=== PATIENT | male | born 1970 | race Hispanic/Latino ===

== ENCOUNTER → 2018-05-15 06:31 | Outpatient (CLI) | payer BC, SELFPAY ==
[2018-05-15 08:37] LABS: Absolute Lymphocyte Count 2.55 X10^3/ul (0.83-4.51); Absolute Neutrophil Count 3.2 X10^3/uL (2.0-7.7); Basophil# 0.02 X10^3/uL; Basophil% 0.3 % (0-1); Eosinophil# 0.24 X10^3/uL; Eosinophils% 3.6 % (0-5); Hematocrit 43.7 % (40-54); Hemoglobin 14.6 g/dl (13.0-16.5); Lymphocyte # 2.55 X10^3/ul (4.0); Lymphocyte % 38.8 % (19-41); Mean Corp Hgb Conc 33.4 g/gl (32-36); Mean Corpuscular Hgb 29.6 pg (27.0-32.0); Mean Corpuscular Volume 88.6 fL (80-94); Mean Platelet Vol. 9.5 fl (6.2-12.0); Monocyte# 0.61 X10^3/uL; Monocyte% 9.3 % (0-10); Neutrophil # 3.15 X10^3/uL (2.7-7.7); Neutrophil % 47.8 % (47-70); Platelet Count 340 K/mm3 (150-450); RBC Distribution Width CV 12.7 % (11.6-14.6); RBC Distribution Width SD 41.1 fl (35.1-43.9); Red Blood Count 4.93 M/mm3 (4.6-6.2); White Blood Count 6.6 K/mm3 (4.4-11.0)
[2018-05-15 08:38] LABS: POSITIVE COUNT NO; POSITIVE DIFFERENTIAL NO; POSITIVE MORPHOLOGY NO
[2018-05-15 08:59] LABS: Albumin, Serum 3.8 g/dL (3.2-5.0); BUN 13 mg/dL (7-18); BUN/Creat Ratio 13.7 RATIO (10-20); Creatinine, Serum 0.95 mg/dL (0.70-1.30); EST Glomerular Filtration Rate 91 mL/min (>60); Est Glom Filt Rate - Afr Amer 110 mL/min (>60); Globulin 4.3 g/dL (2.2-4.2); Glucose 93 mg/dL (74-106); Protein, Total 8.1 g/dL (6.4-8.2)
[2018-05-15 09:00] LABS: ALB/GLOB Ratio 0.9 RATIO (0.9-2.4); AST(SGOT) 19 U/L (15-37); Alanine Aminotransfer ALT/SGPT 31 U/L (16-61); Alkaline Phosphatase 78 U/L (45-117); Anion Gap 10 (5-15); Calcium,Total 8.8 mg/dL (8.5-10.1); Chloride 103 mmol/L (98-107); Cholesterol 175 mg/dL (200); High Density Lipoprotein 47 mg/dL; Potassium 3.6 mmol/L (3.5-5.1); Sodium Level 143 mmol/L (136-145); Triglycerides 124 mg/dL; Very Low Density Lipoprotein 25 mg/dL (5-40)
== END ==
PROVIDERS: Family Provider Internal Medicine; PCP Internal Medicine; Referring Provider Internal Medicine; Visit Provider Internal Medicine
DX: Z00.00 Encounter for general adult medical examination without abnormal findings (principal)
CPT/HCPCS: 36415; 80053; 80061; 85025

== ENCOUNTER → 2019-05-17 | Outpatient (CLI) | payer BC, SELFPAY ==
[2019-05-03 17:34] VITALS: BMI 25.6
[2019-05-17 06:40] LABS: Red Blood Cells-Urine 0 SEEN /hpf (0-5)
[2019-05-17 07:34] LABS: Color, Urine Yellow (Yellow); Glucose, Dipstick Normal (Normal); Ketone-Dipstick 15 mg/dl (Negative); Leukocyte Esterase-Dipstick 25 /ul (Negative); Nitrite-Dipstick Negative (Negative); Occult Blood-Urine Negative /ul (Negative); Protein-Dipstick 30 mg/dl (Negative); Urine Clarity Clear (Clear); Urine Urobilinogen 1 mg/dl (Normal)
[2019-05-17 07:36] LABS: Absolute Lymphocyte Count 2.07 X10^3/uL (0.83-4.51); Absolute Neutrophil Count 3.3 X10^3/uL (2.0-7.7); Basophil# 0.06 X10^3/uL; Eosinophil# 0.18 X10^3/uL; Eosinophils% 2.9 % (0-5); Hematocrit 44.3 % (40-54); Hemoglobin 14.9 g/dL (13.0-16.5); Lymphocyte # 2.07 X10^3/ul (4.0); Lymphocyte % 33.5 % (19-41); Mean Corp Hgb Conc 33.6 g/dL (32-36); Mean Corpuscular Hgb 29.8 pg (27.0-32.0); Mean Corpuscular Volume 88.6 fL (80-94); Mean Platelet Vol. 9.5 fl (6.2-12.0); Monocyte# 0.56 X10^3/uL; Monocyte% 9.1 % (0-10); NRBC Flagged by Analyzer 0 % (0-5); Neutrophil % 53.3 % (47-70); Platelet Count 352 K/mm3 (150-450); RBC Distribution Width CV 12.4 % (11.6-14.6); RBC Distribution Width SD 40.1 fl (35.1-43.9); White Blood Count 6.2 K/mm3 (4.4-11.0)
[2019-05-17 07:56] LABS: Urine Bilirubin Dipstick 1 mg/dL (Negative)
[2019-05-17 07:58] LABS: Bacteria 1+ /hpf (None Seen); Hyaline Cast 5-10 SEEN /lpf (0-5); Mucous, Urine 4+ /hpf (<or=2+); Squamous Epithelial Cells - UA 0-5 SEEN /hpf (0-5); White Blood Cells 0-5 SEEN /hpf (0-5)
[2019-05-17 08:02] LABS: ALB/GLOB Ratio 0.8 RATIO (0.9-2.4); AST(SGOT) 20 U/L (15-37); Alanine Aminotransfer ALT/SGPT 28 U/L (16-61); Alkaline Phosphatase 78 U/L (45-117); Anion Gap 8 (5-15); BUN 21 mg/dL (7-18); BUN/Creat Ratio 18.4 RATIO (10-20); Calcium,Total 9.2 mg/dL (8.5-10.1); Chloride 101 mmol/L (98-107); Cholesterol 183 mg/dL (200); Creatinine, Serum 1.14 mg/dL (0.70-1.30); EST Glomerular Filtration Rate 73 mL/min (>60); Est Glom Filt Rate - Afr Amer 89 mL/min (>60); Globulin 4.8 g/dL (2.2-4.2); Glucose 116 mg/dL (74-106); High Density Lipoprotein 53 mg/dL; Protein, Total 8.8 g/dL (6.4-8.2); Sodium Level 140 mmol/L (136-145); Triglycerides 84 mg/dL; Very Low Density Lipoprotein 17 mg/dL (5-40)
[2019-05-18 12:49] LABS: Hemoglobin A1c 5.1 % (4.2-6.3)
== END | disposition home or self-care (01) ==
PROVIDERS: Family Provider Internal Medicine; PCP Internal Medicine; Referring Provider Internal Medicine; Visit Provider Internal Medicine
DX: Z00.00 Encounter for general adult medical examination without abnormal findings (principal); I10 Essential (primary) hypertension; R73.9 Hyperglycemia, unspecified
CPT/HCPCS: 36415; 80053; 80061; 81001; 83036; 85025; 93005

== ENCOUNTER → 2019-08-08 06:36 | Outpatient (CLI) | payer BC, SELFPAY ==
[2019-05-25 08:08] VITALS: BMI 25.0
[2019-08-08 07:55] LABS: Anion Gap 3 (5-15); BUN 16 mg/dL (7-18); BUN/Creat Ratio 15.1 RATIO (10-20); Calcium,Total 9.9 mg/dL (8.5-10.1); Chloride 103 mmol/L (98-107); Creatinine, Serum 1.06 mg/dL (0.70-1.30); EST Glomerular Filtration Rate 80 mL/min (>60); Est Glom Filt Rate - Afr Amer 96 mL/min (>60); Glucose 104 mg/dL (74-106); Sodium Level 138 mmol/L (136-145)
== END ==
PROVIDERS: PCP Internal Medicine; Referring Provider Internal Medicine; Visit Provider Internal Medicine
DX: I10 Essential (primary) hypertension (principal)
CPT/HCPCS: 36415; 80048

== ENCOUNTER → 2019-10-02 | Outpatient (CLI) | payer BC, SELFPAY ==
[2019-10-02 16:09] VITALS: BMI 25.0
[2019-10-02 16:26] LABS: Bacteria 0 SEEN /hpf (None Seen); Mucous, Urine 0 SEEN /hpf (<or=2+)
[2019-10-02 17:09] LABS: Color, Urine Yellow (Yellow); Glucose, Dipstick Normal (Normal); Ketone-Dipstick Negative (Negative); Leukocyte Esterase-Dipstick Negative /ul (Negative); Nitrite-Dipstick Negative (Negative); Occult Blood-Urine Negative /ul (Negative); Protein-Dipstick Negative (Negative); Urine Bilirubin Dipstick Negative (Negative); Urine Clarity Clear (Clear); Urine Urobilinogen Normal (Normal)
[2019-10-02 17:33] LABS: Squamous Epithelial Cells - UA 0-5 SEEN /hpf (0-5)
[2019-10-02 17:35] LABS: Red Blood Cells-Urine 0-5 SEEN /hpf (0-5); White Blood Cells 0-5 SEEN /hpf (0-5)
[2019-10-02 17:39] LABS: Absolute Lymphocyte Count 1.68 X10^3/uL (0.83-4.51); Absolute Neutrophil Count 14.2 X10^3/uL (2.0-7.7); Basophil# 0.08 X10^3/uL; Basophil% 0.5 % (0-1); Eosinophil# 0.07 X10^3/uL; Eosinophils% 0.4 % (0-5); Hematocrit 41.7 % (40-54); Lymphocyte # 1.68 X10^3/ul (4.0); Lymphocyte % 9.8 % (19-41); Mean Corp Hgb Conc 33.6 g/dL (32-36); Mean Corpuscular Hgb 30.3 pg (27.0-32.0); Mean Corpuscular Volume 90.3 fL (80-94); Mean Platelet Vol. 9.2 fl (6.2-12.0); Monocyte# 1.02 X10^3/uL; NRBC Flagged by Analyzer 0 % (0-5); Neutrophil % 82.9 % (47-70); Platelet Count 364 K/mm3 (150-450); RBC Distribution Width CV 12.3 % (11.6-14.6); RBC Distribution Width SD 39.7 fl (35.1-43.9); Red Blood Count 4.62 M/mm3 (4.6-6.2); White Blood Count 17.1 K/mm3 (4.4-11.0)
[2019-10-02 17:47] LABS: ALB/GLOB Ratio 0.8 RATIO (0.9-2.4); AST(SGOT) 19 U/L (15-37); Alanine Aminotransfer ALT/SGPT 24 U/L (16-61); Albumin, Serum 4.1 g/dL (3.2-5.0); Alkaline Phosphatase 68 U/L (45-117); Anion Gap 6 (5-15); BUN 14 mg/dL (7-18); BUN/Creat Ratio 13.3 RATIO (10-20); Calcium,Total 9.5 mg/dL (8.5-10.1); Chloride 99 mmol/L (98-107); Creatinine, Serum 1.05 mg/dL (0.70-1.30); EST Glomerular Filtration Rate 80 mL/min (>60); Est Glom Filt Rate - Afr Amer 97 mL/min (>60); Globulin 4.9 g/dL (2.2-4.2); Glucose 101 mg/dL (74-106); Potassium 3.9 mmol/L (3.5-5.1); Sodium Level 136 mmol/L (136-145)
== END | disposition home or self-care (01) ==
PROVIDERS: PCP Internal Medicine; Visit Provider Nurse Practitioner Family
DX: R30.0 Dysuria (principal); R00.0 Tachycardia, unspecified
CPT/HCPCS: 36415; 80053; 81001; 84443; 85025; 87086

== ENCOUNTER → 2019-10-09 | Outpatient (CLI) | payer BC, SELFPAY ==
[2019-10-02 16:09] VITALS: BMI 25.0
[2019-10-09 17:00] LABS: Absolute Lymphocyte Count 1.63 X10^3/uL (0.83-4.51); Absolute Neutrophil Count 13.3 X10^3/uL (2.0-7.7); Basophil# 0.08 X10^3/uL; Basophil% 0.5 % (0-1); Eosinophil# 0.15 X10^3/uL; Eosinophils% 0.9 % (0-5); Hematocrit 40.1 % (40-54); Hemoglobin 13.3 g/dL (13.0-16.5); Lymphocyte # 1.63 X10^3/ul (4.0); Lymphocyte % 9.9 % (19-41); Mean Corp Hgb Conc 33.2 g/dL (32-36); Mean Corpuscular Hgb 29.4 pg (27.0-32.0); Mean Corpuscular Volume 88.7 fL (80-94); Mean Platelet Vol. 9.5 fl (6.2-12.0); Monocyte# 1.18 X10^3/uL; Monocyte% 7.2 % (0-10); NRBC Flagged by Analyzer 0 % (0-5); Neutrophil # 13.31 X10^3/uL (2.7-7.7); Neutrophil % 81.2 % (47-70); Platelet Count 405 K/mm3 (150-450); RBC Distribution Width CV 12.1 % (11.6-14.6); RBC Distribution Width SD 38.8 fl (35.1-43.9); Red Blood Count 4.52 M/mm3 (4.6-6.2); White Blood Count 16.4 K/mm3 (4.4-11.0)
== END | disposition home or self-care (01) ==
LOC: LABSPEC 16:44
PROVIDERS: PCP Internal Medicine; Referring Provider Nurse Practitioner Family; Visit Provider Nurse Practitioner Family
DX: D72.829 Elevated white blood cell count, unspecified (principal)
CPT/HCPCS: 85025

== ENCOUNTER → 2019-10-10 | Outpatient (CLI) | payer BC, SELFPAY ==
[2019-10-02 16:09] VITALS: BMI 25.0
--- NOTE | 2019-10-10 11:17 | RAD_ITS ---
STUDY: X-RAY CHEST REASON FOR EXAM: Male, 49 years old. cough TECHNIQUE: PA and lateral COMPARISON: None. FINDINGS: Mildly asymmetrically increased density in the right infrahilar region possibly representing subsegmental atelectasis or evolving infiltrate. This may represent chronic change although no prior study available for comparison at this time There is no demonstrated pleural abnormality. Normal size heart. Normal mediastinum and katie. Normal visualized pulmonary arteries. Normal visualized aortic arch and descending thoracic aorta. Dorsal spine demonstrates minor scoliosis and degenerative change. Normal visualized ribs, clavicles, and shoulders. There is no demonstrated abnormality of the visualized soft tissue structures of the upper abdomen. RAD/Chest PA and Lateral IMPRESSION: Asymmetrically increased density in the right infrahilar region possibly representing evolving atelectasis or infiltrate. Would recommend correlation with prior studies to assess for interval changes. CT would be useful for further evaluation if clinically warranted Electronically Signed: Jarod Andrews MD at 17:51 EDT , Service support ,
== END | disposition home or self-care (01) ==
PROVIDERS: PCP Internal Medicine; Referring Provider Internal Medicine; Visit Provider Internal Medicine
DX: R06.00 Dyspnea, unspecified (principal)
CPT/HCPCS: 71046

== ENCOUNTER → 2019-11-09 | Outpatient (CLI) | payer BC, SELFPAY ==
[2019-10-02 16:09] VITALS: BMI 25.0
[2019-11-09 16:33] LABS: Chlamydia Trachomatis by PCR Negative (Negative); Neisserai gonorrhoeae by PCR Negative (Negative); Probe Check PASS; Sample Adequacy Control PASS; Specimen Processing Control PASS
[2019-11-13 03:06] LABS: QNTFERON TB Mitogen Value > 10.00 IU/mL (.); QNTFERON TB Nil Value 0.02 IU/mL (.); QNTFERON TB1+ Ag Value 0.02 IU/mL (.); QNTFERON TB2+ Ag Value 0.02 IU/mL (.)
[2019-11-13 05:55] LABS: QNTIFERON TB Positive Criteria Negative (Negative)
[2019-11-15 02:32] LABS: Rapid Plasmin Reagin (RPR) NONREACTIVE (NONREACTIVE)
== END | disposition home or self-care (01) ==
PROVIDERS: PCP Internal Medicine
DX: Z11.3 Encounter for screening for infections with a predominantly sexual mode of transmission (principal)
CPT/HCPCS: 36415; 86480; 86592; 87491; 87591

== ENCOUNTER → 2019-11-12 | Outpatient (CLI) | payer BC, SELFPAY ==
[2019-10-02 16:09] VITALS: BMI 25.0
--- NOTE | 2019-11-12 15:51 | RAD_ITS ---
STUDY: X-RAY CHEST REASON FOR EXAM: Male, 49 years old. had some chest tightness and sob last month, follow up TECHNIQUE: PA and lateral views of the chest. COMPARISON: 10/10/2019 FINDINGS: The lungs are clear and expanded. There is no demonstrated pleural abnormality. Normal size heart. Normal mediastinum and katie. Normal visualized pulmonary arteries. Normal visualized aortic arch and descending thoracic aorta. Normal visualized thoracic spine. Normal visualized ribs, clavicles, and shoulders. There is no demonstrated abnormality of the visualized soft tissue structures of the upper abdomen. RAD/Chest PA and Lateral IMPRESSION: Normal x-ray examination of the chest. Electronically Signed: Sulema oNland MD at 0:55 EDT , Service support ,
[2019-11-12 17:32] LABS: Absolute Neutrophil Count 3.6 X10^3/uL (2.0-7.7); Basophil# 0.05 X10^3/uL; Basophil% 0.8 % (0-1); Eosinophil# 0.09 X10^3/uL; Eosinophils% 1.5 % (0-5); Hematocrit 42.2 % (40-54); Hemoglobin 14.2 g/dL (13.0-16.5); Lymphocyte % 30.7 % (19-41); Mean Corp Hgb Conc 33.6 g/dL (32-36); Mean Corpuscular Hgb 30.1 pg (27.0-32.0); Mean Corpuscular Volume 89.4 fL (80-94); Mean Platelet Vol. 9.6 fl (6.2-12.0); Monocyte# 0.58 X10^3/uL; Monocyte% 9.4 % (0-10); NRBC Flagged by Analyzer 0 % (0-5); Neutrophil # 3.55 X10^3/uL (2.7-7.7); Neutrophil % 57.4 % (47-70); Platelet Count 325 K/mm3 (150-450); RBC Distribution Width CV 12.6 % (11.6-14.6); RBC Distribution Width SD 41.1 fl (35.1-43.9); Red Blood Count 4.72 M/mm3 (4.6-6.2); White Blood Count 6.2 K/mm3 (4.4-11.0)
== END | disposition home or self-care (01) ==
PROVIDERS: PCP Internal Medicine; Referring Provider Nurse Practitioner Family; Visit Provider Nurse Practitioner Family
DX: J18.9 Pneumonia, unspecified organism (principal); D72.829 Elevated white blood cell count, unspecified
CPT/HCPCS: 36415; 71046; 85025

== ENCOUNTER 2019-11-15 12:47 | Emergency (ER) | payer BC, SELFPAY ==
[2019-11-15 12:48] VITALS: BP 158/110; PULSE 133; RESP 18; TEMP 37.1; O2SAT 100; BMI 23.8
--- NOTE | 2019-11-15 13:02 | EKG12_ITS ---
Test Reason : Blood Pressure : / mmHG Vent. Rate : 107 BPM Atrial Rate : 107 BPM P-R Int : 138 ms QRS Dur : 080 ms QT Int : 336 ms P-R-T Axes : 069 065 020 degrees QTc Int : 448 ms Sinus tachycardia Otherwise normal ECG Confirmed by JAKE ROQUE ([id number]), make up editor SILAS RAMOS ([id number]) on 11/19/2019 1:20:16 PM Referred By: KASHMIR Confirmed By:JAKE ROQUE
--- NOTE | 2019-11-15 13:03 | ED.VISSUMM ---
- ER Visit Summary Date of Service: 11/15/19 Chief Complaint: Shortness of breath History of Present Illness: The patient is a 49 M who complains of shortness of breath. He states it started yesterday. He gets short of breath with exertion and better with rest. He admits to a cough but is not continuous. He does have some chest pain but is not continuous. He has chills but no fevers. He states he has some backaches as well as a lack of appetite. No nausea or vomiting. He admits that he had pneumonia 1 month ago and had elevation of his white blood cell count. It was rechecked last Tuesday and his white blood cell count and chest x-ray were clear. He only has a history of hypertension. No known exposures to coronavirus Physical Examination: Vital signs reviewed. HEENT exam unremarkable. Heart is tachycardic and regular rhythm without murmurs. Lungs are clear to auscultation. Abdomen is soft and nontender. Extremities reveal no edema. Skin exam normal. Neurologic exam normal. Test Results: White blood cell count 23.3. Sodium 135, potassium 3.3, glucose 164. Troponin and d-dimer are normal. Chest x-ray normal Emergency Department Course and Treatment: The patient was given a liter of IV fluids. Upon reevaluation he states that he feels much better. His pain is now gone. I do not feel that this is cardiac. He showed me his labs from November 11. His white blood cell count was 6.7 at that time. He has no signs of pneumonia. He does not look septic or toxic. I am not quite sure what the white blood cell count could be from. It may be due to dehydration. At this point I do not feel he needs any antibiotics. He will increase his hydration at home. He will be discharged to follow-up with his primary care physician. I do not feel he requires coronavirus testing at this time. Treatment Plan: [] Disposition: Discharge Impression: Dyspnea, leukocytosis This note was generated with [employer] dictation software. It may contain incorrect words, spelling, and punctuation that were not noted in review of the chart prior to signing ED Disposition - Plan for ED Patient: Disposition: Home or Assisted Living Instructions: ED Dyspnea Referrals: Ye Kim MD [Primary Care Provider] -
[2019-11-15] MEDS: 0.9% Normal Saline 1,000 ML 999 ML IV (13:38)
[2019-11-15 13:43] VITALS: BP 137/91; PULSE 108; RESP 24; TEMP 36.7; O2SAT 100
--- NOTE | 2019-11-15 13:50 | RAD_ITS ---
STUDY: X-RAY CHEST REASON FOR EXAM: Male, 49 years old. SOB, COUGH TECHNIQUE: Single AP portable view of the chest. COMPARISON: None. FINDINGS: EKG electrodes are seen. The lungs are clear and expanded. Scattered calcified granulomas. There is no demonstrated pleural abnormality. Normal size heart. Normal mediastinum and katie. Normal visualized pulmonary arteries. Normal visualized aortic arch and descending thoracic aorta. There are degenerative changes of the visualized thoracic spine. Normal visualized ribs, clavicles, and shoulders. There is no demonstrated abnormality of the visualized soft tissue structures of the upper abdomen. RAD/Chest 1 View (Portable) IMPRESSION: Normal x-ray examination of the chest. Electronically Signed: Benny Mao, at 14:18 EDT , Service support ,
[2019-11-15 13:52] LABS: Absolute Lymphocyte Count 0.79 X10^3/uL (0.83-4.51); Absolute Neutrophil Count 21.2 X10^3/uL (2.0-7.7); Basophil# 0.08 X10^3/uL; Basophil% 0.3 % (0-1); Eosinophil# 0.02 X10^3/uL; Eosinophils% 0.1 % (0-5); Hematocrit 41.2 % (40-54); Hemoglobin 14.1 g/dL (13.0-16.5); Lymphocyte # 0.79 X10^3/ul (4.0); Lymphocyte % 3.4 % (19-41); Mean Corp Hgb Conc 34.2 g/dL (32-36); Mean Corpuscular Hgb 30.1 pg (27.0-32.0); Mean Platelet Vol. 9.3 fl (6.2-12.0); Monocyte# 1.01 X10^3/uL; Monocyte% 4.3 % (0-10); NRBC Flagged by Analyzer 0 % (0-5); Neutrophil # 21.24 X10^3/uL (2.7-7.7); Neutrophil % 91.4 % (47-70); POSITIVE DIFFERENTIAL YES; Platelet Count 308 K/mm3 (150-450); RBC Distribution Width CV 12.7 % (11.6-14.6); RBC Distribution Width SD 40.3 fl (35.1-43.9); Red Blood Count 4.68 M/mm3 (4.6-6.2); White Blood Count 23.3 K/mm3 (4.4-11.0)
[2019-11-15 13:53] LABS: Differential Indicated SCAN CRITERIA MET
[2019-11-15 14:06] LABS: D-Dimer Quantitative (DVT/PE) <= 0.27 FEU/ug/m (0.27-0.49)
[2019-11-15 14:10] LABS: Anion Gap 10 (5-15); BUN 13 mg/dL (7-18); BUN/Creat Ratio 10.1 RATIO (10-20); Calcium,Total 9.8 mg/dL (8.5-10.1); Chloride 96 mmol/L (98-107); Creatinine, Serum 1.29 mg/dL (0.70-1.30); EST Glomerular Filtration Rate 63 mL/min (>60); Est Glom Filt Rate - Afr Amer 77 mL/min (>60); Glucose 164 mg/dL (74-106); Potassium 3.3 mmol/L (3.5-5.1); Sodium Level 135 mmol/L (136-145)
[2019-11-15 14:16] VITALS: BP 139/87; PULSE 104; RESP 24; TEMP 36.9; O2SAT 99
[2019-11-15 15:09] VITALS: BP 134/84; PULSE 98; RESP 18; TEMP 36.9; O2SAT 99
[2019-11-16 12:02] VITALS: BMI 25.0
== END 2019-11-15 15:12 | disposition home or self-care (01) ==
PROVIDERS: Emergency Provider Emergency Medicine; PCP Internal Medicine
DX: R06.00 Dyspnea, unspecified (principal); D72.829 Elevated white blood cell count, unspecified; I10 Essential (primary) hypertension; Z79.899 Other long term (current) drug therapy
CPT/HCPCS: 71045; 80048; 84484; 85025; 85379; 93005; 96360; 99284

== ENCOUNTER → 2019-11-16 | Outpatient (CLI) | payer BC, SELFPAY ==
[2019-11-16 12:02] VITALS: BMI 25.0
[2019-11-16 13:10] LABS: Erythrocyte Sedimentation Rate 25 mm/hr (0-15)
[2019-11-19 13:08] LABS: ANTINUCLEAR ANTIBODIES DIRECT Negative (Negative)
== END | disposition home or self-care (01) ==
LOC: LAB 12:11
PROVIDERS: PCP Internal Medicine; Referring Provider Internal Medicine; Visit Provider Internal Medicine
DX: D72.829 Elevated white blood cell count, unspecified (principal); R07.9 Chest pain, unspecified
CPT/HCPCS: 36415; 85652; 86038; 86140; 86225; 86235; 87040

== ENCOUNTER → 2019-11-20 06:46 | Outpatient (CLI) | payer BC, SELFPAY ==
[2019-11-16 12:02] VITALS: BMI 25.0
--- NOTE | 2019-11-20 06:48 | CT_ITS ---
STUDY: CT CHEST WITH CONTRAST REASON FOR EXAM: Male, 49 years old. SOB AND CHEST PAIN TWO MONTHS AGO RADIATION DOSAGE (If Supplied By Facility): CTDIvol = ( 10.20 ) mGy, DLP = ( 256.82 ) mGycm TECHNIQUE: Transaxial imaging was performed following intravenous administration of IV 100mL [id number]-300. Individualized dose optimization techniques were used for this CT. COMPARISON: None. FINDINGS: The lungs are normal. There is no demonstrated pleural abnormality. Normal heart and pericardium. Normal mediastinum. Normal hilar regions. Normal enhanced pulmonary arteries. Normal aorta arch and descending thoracic aorta. Normal osseous structures. There is no demonstrated abnormality of the visualized upper abdomen. CT/Chest WITH Contrast IMPRESSION: Normal enhanced CT Chest examination. Electronically Signed: Abel Verma, at 14:13 EDT Tel , Service support ,
== END ==
PROVIDERS: PCP Internal Medicine; Referring Provider Internal Medicine; Visit Provider Internal Medicine
DX: R06.02 Shortness of breath (principal); D72.829 Elevated white blood cell count, unspecified
CPT/HCPCS: 71260; Q9967

== ENCOUNTER → 2019-11-27 06:31 | Outpatient (CLI) | payer BC, SELFPAY ==
[2019-11-27 07:02] LABS: Absolute Neutrophil Count 2.5 X10^3/uL (2.0-7.7); Basophil# 0.06 X10^3/uL; Basophil% 1.1 % (0-1); Eosinophil# 0.34 X10^3/uL; Hematocrit 40.6 % (40-54); Hemoglobin 13.6 g/dL (13.0-16.5); Lymphocyte % 40.8 % (19-41); Mean Corp Hgb Conc 33.5 g/dL (32-36); Mean Corpuscular Hgb 29.5 pg (27.0-32.0); Mean Corpuscular Volume 88.1 fL (80-94); Mean Platelet Vol. 8.8 fl (6.2-12.0); Monocyte# 0.48 X10^3/uL; Monocyte% 8.5 % (0-10); NRBC Flagged by Analyzer 0 % (0-5); Neutrophil # 2.46 X10^3/uL (2.7-7.7); Neutrophil % 43.6 % (47-70); Platelet Count 392 K/mm3 (150-450); RBC Distribution Width CV 11.9 % (11.6-14.6); RBC Distribution Width SD 38.1 fl (35.1-43.9); Red Blood Count 4.61 M/mm3 (4.6-6.2); White Blood Count 5.6 K/mm3 (4.4-11.0)
== END ==
PROVIDERS: PCP Internal Medicine; Referring Provider Internal Medicine; Visit Provider Internal Medicine
DX: D72.829 Elevated white blood cell count, unspecified (principal)
CPT/HCPCS: 36415; 85025

== ENCOUNTER → 2019-11-28 | Outpatient (CLI) | payer BC, SELFPAY ==
[2019-11-28 17:58] LABS: CRP < 2.90 mg/L (0.0-3.0)
== END | disposition home or self-care (01) ==
LOC: LABSPEC 17:11
PROVIDERS: Visit Provider Internal Medicine
DX: R79.82 Elevated C-reactive protein (CRP) (principal)
CPT/HCPCS: 86140

== ENCOUNTER → 2020-01-16 | Outpatient (CLI) | payer BC, SELFPAY ==
[2020-01-16 15:56] VITALS: BMI 25.0
[2020-01-16 17:03] LABS: CRP 5.57 mg/L (0.0-3.0)
[2020-01-17 07:15] LABS: SARS-COV-2 TOTAL ABS Nonreactive (Nonreactive)
== END | disposition home or self-care (01) ==
PROVIDERS: PCP Internal Medicine; Referring Provider Internal Medicine Cardiovascular Disease; Visit Provider Internal Medicine Cardiovascular Disease
DX: R79.82 Elevated C-reactive protein (CRP) (principal); Z11.59 Encounter for screening for other viral diseases
CPT/HCPCS: 36415; 86140; 86769; G2023

== ENCOUNTER → 2020-02-14 | Outpatient (CLI) | payer BC, SELFPAY ==
[2020-01-16 15:56] VITALS: BMI 25.0
--- NOTE | 2020-02-14 07:56 | ECHOD_ITS ---
Reason For Study: Hypertension Procedure This was a 2D Doppler, Color Flow transthoracic echocardiogram. Exam performed in department. Left Ventricle Normal LV size. Left ventricular systolic function is normal. The estimated ejection fraction is 60 %. Normal diastology for age. No regional wall motion abnormalities noted. Right Ventricle Normal RV size. Normal systolic function. Atria Normal left atrium. Normal right atrium. Mitral Valve Normal mitral valve. Tricuspid Valve Normal tricuspid valve. Aortic Valve Normal aortic valve. Trisinus/trileaflet aortic valve. Pulmonic Valve Normal pulmonic valve. Great Vessels Normal aortic root. The pulmonary artery is normal size. Normal inferior vena cava. Pericardium/Pleural No pericardial effusion. MMode/2D Measurements & Calculations LVIDd: 4.3 cm IVSd: 1.00 cm Ao root diam: 2.7 cm LVIDs: 2.7 cm LVPWd: 1.1 cm LA dimension: 3.3 cm RVDd: 3.1 cm FS: 36.0 % LAV(MOD-bp): 28.1 ml LVAd ap4: 25.1 cm2 SV(MOD-sp4): 36.8 ml LAV(MOD-bp) Indexed: 13.9 ml/m2 EDV(MOD-sp4): 66.7 ml LAV(MOD-sp2): 31.4 ml EDV(sp4-el): 69.9 ml LAV(MOD-sp4): 21.6 ml LVAs ap4: 15.5 cm2 ESV(MOD-sp4): 29.9 ml ESV(sp4-el): 30.8 ml EF(MOD-sp4): 55.2 % EF(sp4-el): 55.9 % SV(sp4-el): 39.1 ml LA A4 area: 11.5 cm2 RA A4 area: 12.7 cm2 Time Measurements MV dec time: 0.24 sec Doppler Measurements & Calculations MV E max lucho: 59.6 cm/sec Lat Peak E' Lucho: 15.1 cm/sec Med Peak E' Lucho: 9.1 cm/sec MV A max lucho: 41.9 cm/sec E/E' lat: 3.9 E/E' med: 6.5 MV E/A: 1.4 MV V2 max: 75.5 cm/sec MV P1/2t max lucho: 75.9 cm/sec Ao V2 max: 98.8 cm/sec MV max P.3 mmHg MV P1/2t: 69.2 msec Ao max P.9 mmHg MV V2 mean: 46.0 cm/sec MV mean P.95 mmHg MV dec slope: 321.3 cm/sec2 MV V2 VTI: 16.6 cm MVA(P1/2t): 3.2 cm2 LV V1 max: 85.6 cm/sec PA V2 max: 120.2 cm/sec LV V1 max P.9 mmHg Interpretation Summary Normal LV size. Left ventricular systolic function is normal. The estimated ejection fraction is 60 %. Structurally normal valves. Ordering Physician: Enrique Jolley Referring Physician: Ye Kim Performed By: Spring HUDSON RVT, Carrie and Student
== END | disposition home or self-care (01) ==
LOC: CVS 07:56
PROVIDERS: PCP Internal Medicine; Referring Provider Internal Medicine Cardiovascular Disease; Visit Provider Internal Medicine Cardiovascular Disease
DX: R06.00 Dyspnea, unspecified (principal); I10 Essential (primary) hypertension
CPT/HCPCS: 93225; 93226; 93306

== ENCOUNTER → 2020-09-26 11:47 | Outpatient (CLI) | payer BC, SELFPAY ==
[2020-09-26 11:18] VITALS: BMI 23.2
[2020-09-26 15:12] LABS: Erythrocyte Sedimentation Rate 3 mm/hr (0-20)
[2020-09-26 15:15] LABS: CRP 2.97 mg/L (0.0-3.0); Rheumatoid Factor < 10.0 IU/mL (<15)
[2020-09-30 08:52] LABS: CCP IgG Antibodies 4 units (0-19)
== END ==
PROVIDERS: PCP Internal Medicine; Referring Provider Internal Medicine; Visit Provider Internal Medicine
DX: M19.90 Unspecified osteoarthritis, unspecified site (principal)
CPT/HCPCS: 36415; 85652; 86140; 86200; 86431

== ENCOUNTER → 2020-10-02 16:59 | Outpatient (CLI) | payer BC, SELFPAY ==
[2020-09-26 11:18] VITALS: BMI 23.2
--- NOTE | 2020-10-02 17:10 | US_ITS ---
STUDY: SUPERFICIAL ULTRASOUND - SUBMANDIBULAR NECK. REASON FOR EXAM: Male, 50 years old. Submandibular swelling. Swelling of the right cheek/parotid area for 2 weeks and is beginning to decrease. TECHNIQUE: A superficial ultrasound was performed with real-time and static burns-scale imaging. COMPARISON: None. FINDINGS: Evaluation demonstrates normal right parotid gland. The overlying soft tissues and underlying musculature appear normal. Findings appear to layer to the comparable nonaffected left side. US/Head/Neck Soft Tissue IMPRESSION: No sonographic evidence of abnormality. Electronically Signed: Young Taylor DO at 20:42 EDT Tel [phone], Service support ,
--- NOTE | 2020-10-02 17:23 | RAD_ITS ---
STUDY: X-RAY - LEFT HAND REASON FOR EXAM: Left hand pain for about 2 months. TECHNIQUE: 3 view(s) of the hand. COMPARISON: None. FINDINGS: Normal radiocarpal articulation. Normal distal radioulnar joint. Normal visualized carpal bones. Normal carpal articulations Normal carpometacarpal articulation of the thumb. Normal second through fifth carpometacarpal joints. Normal metacarpi. Normal metacarpophalangeal joint of the thumb. Normal interphalangeal joint of the thumb. Normal proximal and distal phalanges of the thumb. Normal metacarpophalangeal joints of the second through fifth fingers. 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 Normal proximal and distal interphalangeal joints of the second through fourth fingers. Normal phalanges of the second through fifth fingers. The soft tissue structures are unremarkable. RAD/Hand Min 3 Views IMPRESSION: Boutonniere deformity of the fifth digit. Otherwise, unremarkable x-ray examination of the left hand. Electronically Signed: Karl Leroy MD at 10:33 EDT Tel , Service support ,
--- NOTE | 2020-10-02 17:24 | RAD_ITS ---
STUDY: X-RAY - RIGHT HAND REASON FOR EXAM: Right index finger pain for about 2 months. TECHNIQUE: 3 view(s) of the hand. COMPARISON: None. FINDINGS: Normal radiocarpal articulation. Normal distal radioulnar joint. Normal visualized carpal bones. Normal carpal articulations Normal carpometacarpal articulation of the thumb. Normal second through fifth carpometacarpal joints. Normal metacarpi. Normal metacarpophalangeal joint of the thumb. Normal interphalangeal joint of the thumb. Normal proximal and distal phalanges of the thumb. Normal metacarpophalangeal joints of the second through fifth fingers. There is flexion deformity at the proximal interphalangeal joint of the fifth digit. Otherwise, unremarkable proximal and distal interphalangeal joints of the second through fifth fingers. Normal phalanges of the second through fifth fingers. The soft tissue structures are unremarkable. RAD/Hand Min 3 Views IMPRESSION: Flexion deformity at the proximal interphalangeal joint of the fifth digit. Otherwise, unremarkable x-ray examination of the right hand. Electronically Signed: Karl Leroy MD at 10:29 EDT Tel , Service support ,
== END ==
PROVIDERS: PCP Internal Medicine; Referring Provider Internal Medicine; Visit Provider Internal Medicine
DX: M19.90 Unspecified osteoarthritis, unspecified site (principal); M79.641 Pain in right hand; R22.1 Localized swelling, mass and lump, neck
CPT/HCPCS: 73130; 76536

== ENCOUNTER → 2021-06-02 16:12 | Outpatient (CLI) | payer BC, SELFPAY ==
[2021-06-02 16:36] LABS: Absolute Lymphocyte Count 1.38 X10^3/uL (0.83-4.51); Absolute Neutrophil Count 5.6 X10^3/uL (2.0-7.7); Basophil# 0.03 X10^3/uL; Basophil% 0.4 % (0-1); Eosinophil# 0.01 X10^3/uL; Eosinophils% 0.1 % (0-5); Hematocrit 43.1 % (40-54); Hemoglobin 14.8 g/dL (13.0-16.5); Lymphocyte # 1.38 X10^3/ul (0.83-4.51); Lymphocyte % 18.5 % (19-41); Mean Corp Hgb Conc 34.3 g/dL (32-36); Mean Corpuscular Hgb 30.2 pg (27.0-32.0); Mean Platelet Vol. 8.6 fl (6.2-12.0); Monocyte# 0.45 X10^3/uL; NRBC Flagged by Analyzer 0 % (0-5); Neutrophil # 5.56 X10^3/uL (2.7-7.7); Neutrophil % 74.7 % (47-70); Platelet Count 396 K/mm3 (150-450); RBC Distribution Width CV 12.4 % (11.6-14.6); RBC Distribution Width SD 39.5 fl (35.1-43.9); White Blood Count 7.5 K/mm3 (4.4-11.0)
[2021-06-02 17:02] LABS: ALB/GLOB Ratio 0.8 RATIO (0.9-2.4); AST(SGOT) 21 U/L (15-37); Alanine Aminotransfer ALT/SGPT 28 U/L (16-61); Alkaline Phosphatase 72 U/L (45-117); Anion Gap 8 (5-15); BUN 13 mg/dL (7-18); BUN/Creat Ratio 12.1 RATIO (10-20); Calcium,Total 9.8 mg/dL (8.5-10.1); Chloride 97 mmol/L (98-107); Cholesterol 229 mg/dL (200); Creatinine, Serum 1.07 mg/dL (0.70-1.30); EST Glomerular Filtration Rate 78 mL/min (>60); Est Glom Filt Rate - Afr Amer 95 mL/min (>60); Globulin 5.2 g/dL (2.2-4.2); Glucose 111 mg/dL (74-106); High Density Lipoprotein 67 mg/dL; Potassium 3.6 mmol/L (3.5-5.1); Protein, Total 9.2 g/dL (6.4-8.2); Sodium Level 136 mmol/L (136-145); Thyroid Stim Hormone (TSH) 1.92 uIU/mL (0.358-3.74); Triglycerides 63 mg/dL; Very Low Density Lipoprotein 13 mg/dL (5-40)
== END ==
PROVIDERS: PCP Internal Medicine; Referring Provider Nurse Practitioner Family; Visit Provider Nurse Practitioner Family
DX: Z00.00 Encounter for general adult medical examination without abnormal findings (principal)
CPT/HCPCS: 36415; 80053; 80061; 84443; 85025

== ENCOUNTER 2021-08-28 07:15 | Day surgery (SDC) | payer BC, SELFPAY ==
[2021-08-28] VITALS (7 sets, daily range): BP systolic 76–133; BP diastolic 44–85; PULSE 70–87; RESP 14–16; TEMP 36.1–37.1; O2SAT 98–100; BMI 23.6
[2021-08-28] MEDS: Lactated Ringers 1,000 ML 15 ML IV (07:42)
--- NOTE | 2021-08-28 08:37 | HP.PCM_ITS ---
HPI - General HPI Narrative ELISEO PEACE JUNIOR, is a 51 M who presents for screening colonoscopy. The patient is never had a colonoscopy in the past. He reports no abdominal pain or blood in stool. He has no family history of colon cancer. [facility] Medical History (Updated 08/26/21 @ 10:24 by June Doe) Cardiology follow-up encounter Encounter for preventative adult health care examination Essential hypertension History of echocardiogram History of varicocele Hyperlipemia Non-smoker Wears glasses Home Medications hydrochlorothiazide 25 mg tablet 25 mg PO DAILY #90 tab 01/28/21 [Rx Last Taken Unknown] candesartan 32 mg tablet 32 mg PO DAILY #90 tab 04/27/21 [Rx Last Taken 08/28/21] magnesium 200 mg PO DAILY 08/26/21 [History Last Taken Unknown] omega 1-hbc-sll-fish oil [Fish Oil] 1 cap PO BID 08/26/21 [History Last Taken Unknown] Allergy/AdvReac Type Severity Reaction Status Date / Time No Known Allergies Allergy Verified 08/28/21 07:32 Family History Father Diabetes Mother Hypertension Hyperlipemia Surgical History History of right knee surgery Social History Smoking Status: Never smoker alcohol intake: never substance use type: does not use what type of physical activity do you participate in: bicycling and weight training frequency: 3-4 times per week Past Medical/Surgical History Planned Operation Planned Operative Procedure/s: COLONOSCOPY Previous Hospitalizations/Surgeries HX Hospitalizations: No Any Problems With Anesthesia: No You/Your Family Experience Fever (Hyperthermia) With Anes: No Cholinesterase deficiency: No Cardiovascular Hx Hypertension: Yes (CONTROLLED ON MED) Respiratory Hx Sleep Apnea: No Hx Respiratory Tract Infection/Cold (presently): No Do You Snore Loudly (louder than talking or can be heard): No Do You Often Feel Tired/ Fatigued/ Sleepy Dring Daytime?: No Has Anyone Observed You Stop Breathing During Sleep?: No Result (for STOP score): Negative Smoking Status: Never smoker Neurological Does patient have nerve stimulator: No Blood Disorder Hx High Cholesterol: Yes Miscellaneous Recent Exposure to Contagious Disease: No Allergies No Known Allergies Allergy (Verified 08/28/21 07:32) Discharge Is Pt Admitted From a Retirement, or a Half-Way: No After D/C, Where Do you Plan to Go: Return Home Vital Signs Vital Signs Vital Signs: 08/28/21 07:38 Temperature 98.7 F Temperature Source Temporal Pulse Rate 87 Respiratory Rate 16 Respiratory Pattern Normal Blood Pressure 133/85 H Blood Pressure Mean 101 Blood Pressure Source Monitor Blood Pressure Position Semi-Fowlers Blood Pressure Location Right Arm Pulse Ox 100 Oxygen Delivery Method Room Air Weight Weight: 174 lb 2.643 oz Body Mass Index (BMI) 23.6 Physical Exam Const alert and oriented x3 Resp normal respiratory effort and normal air movement Cardio regular rate and regular rhythm GI soft to palpation, non-tender and non-distended Assessment & Plan Assessment/Plan (1) Encounter for screening for malignant neoplasm of colon: PLAN: I explained endoscopy in detail to the patient. I explained the risks including but not limited to stroke or heart attack with anesthesia, perforation of the GI tract, bleeding, infection. I explained that any of these could necessitate further emergency surgery. The patient understands and all questions were answered sufficiently. The patient wishes to proceed with procedure. Bj Gibbons MD Pager: [facility] [address] [place] [address] [address] [place] [address] Office: Surgery Risks - Colonoscopy Risks Include but are not Limited To: Risks include but are not limited to: Bleeding, perforation requiring further surgery, inability to complete colonoscopy requiring barium enema.
--- NOTE | 2021-08-28 09:04 | OP.COLON_ITS ---
Patient Name: Trena Corley Junior Procedure Date: 08/28/2021 8:44 AM Date of : 1970 Age: 51 Procedure: Colonoscopy Indications: Screening for colorectal malignant neoplasm Providers: Bj Gibbons MD Referring MD: Ye Kim MD Medicines: Monitored Anesthesia Care Patient Profile: This is a 51 year old male. Refer to note in patient chart for documentation of history and physical. Last Colonoscopy: none. The patient's first colonoscopy is today. Complications: No immediate complications. Procedure: Pre-Anesthesia Assessment: - Prior to the procedure, a History and Physical was performed, and patient medications and allergies were reviewed. The patient's tolerance of previous anesthesia was also reviewed. The risks and benefits of the procedure and the sedation options and risks were discussed with the patient. All questions were answered, and informed consent was obtained. Prior Anticoagulants: The patient has taken no previous anticoagulant or antiplatelet agents. After reviewing the risks and benefits, the patient was deemed in satisfactory condition to undergo the procedure. After I obtained informed consent, the scope was passed under direct vision. Throughout the procedure, the patient's blood pressure, pulse, and oxygen saturations were monitored continuously. The colonoscope was introduced through the anus and advanced to the cecum, identified by appendiceal orifice and ileocecal valve. The colonoscopy was performed without difficulty. The patient tolerated the procedure well. The quality of the bowel preparation was good. Scope In: 8:49:36 AM Scope Withdrawal Time 0 hours 6 minutes 7 seconds Scope Out: 9:01:48 AM Total Procedure Duration Time 0 hours 12 minutes 12 seconds Findings: The entire examined colon appeared normal on direct and retroflexion views. Impression: - The entire examined colon is normal on direct and retroflexion views. - No specimens collected. Recommendation: - Discharge patient to home. - Resume previous diet. - Continue present medications. - Repeat colonoscopy in 10 years for screening purposes. Procedure Code(s): --- Professional --- 31254, Colonoscopy, flexible; diagnostic, including collection of specimen(s) by brushing or washing, when performed (separate procedure) Diagnosis Code(s): --- Professional --- Z12.11, Encounter for screening for malignant neoplasm of colon CPT copyright 2017 [employer]. All rights reserved. The codes documented in this report are preliminary and upon blackjack dealer review may be revised to meet current compliance requirements. Bj Gibbons MD 08/28/2021 9:03:23 AM This report has been signed electronically. Number of Addenda: 0 Note Initiated On: 08/28/2021 8:44 AM
--- NOTE | 2021-08-28 09:04 | OP.CCLET_ITS ---
08/28/2021 Ye Kim MD [address] [place] [address] [place] [address] Re : Colonoscopy procedure for Dorsánchez Do Lynda Wesly Dear Dr. Kim This procedure was performed on Saturday, August 28, 2021. My impressions and recommendations are as follows: Impressions : - The entire examined colon is normal on direct and retroflexion views. - No specimens collected. Recommendations : - Discharge patient to home. - Resume previous diet. - Continue present medications. - Repeat colonoscopy in 10 years for screening purposes. My findings are described in the full procedure note, which is enclosed. If I can be of further assistance, please feel free to contact me at Doctor phone number(s): , Work: . Sincerely, Bj Gibbons MD 08/28/2021 9:03:23 AM This report has been signed electronically.
== END 2021-08-28 23:59 | disposition home or self-care (01) ==
LOC: EN 07:17 → AC 07:18
PROVIDERS: PCP Internal Medicine; Referring Provider Internal Medicine; Visit Provider Surgery
PROC: 0DJD8ZZ Inspection of Lower Intestinal Tract, Via Natural or Artificial Opening Endoscopic (ICD-10-PCS; CPT 45378; principal; 2021-08-28 08:25)
DX: Z12.11 Encounter for screening for malignant neoplasm of colon (principal); I10 Essential (primary) hypertension; Z79.899 Other long term (current) drug therapy
CPT/HCPCS: 45378; J7120

== ENCOUNTER → 2022-10-15 | Outpatient (CLI) | payer BC, SELFPAY ==
[2022-10-15 12:29] LABS: Absolute Lymphocyte Count 1.41 X10^3/uL (0.83-4.51); Absolute Neutrophil Count 7.4 X10^3/uL (2.0-7.7); Basophil# 0.01 X10^3/uL; Basophil% 0.1 % (0-1); Hematocrit 45.3 % (40-54); Lymphocyte # 1.41 X10^3/ul (0.83-4.51); Lymphocyte % 14.8 % (19-41); Mean Corp Hgb Conc 33.1 g/dL (32-36); Mean Corpuscular Hgb 29.6 pg (27.0-32.0); Mean Corpuscular Volume 89.5 fL (80-94); Mean Platelet Vol. 9.4 fl (6.2-12.0); Monocyte# 0.67 X10^3/uL; NRBC Flagged by Analyzer 0 % (0-5); Neutrophil % 77.9 % (47-70); Platelet Count 416 K/mm3 (150-450); RBC Distribution Width CV 12.5 % (11.6-14.6); RBC Distribution Width SD 40.8 fl (35.1-43.9); Red Blood Count 5.06 M/mm3 (4.6-6.2); White Blood Count 9.5 K/mm3 (4.4-11.0)
[2022-10-15 13:20] LABS: ALB/GLOB Ratio 0.9 RATIO (0.9-2.4); AST(SGOT) 17 U/L (15-37); Alanine Aminotransfer ALT/SGPT 24 U/L (16-61); Alkaline Phosphatase 58 U/L (45-117); Anion Gap 4 (5-15); BUN 24 mg/dL (7-18); BUN/Creat Ratio 21.4 RATIO (10-20); Calcium,Total 9.8 mg/dL (8.5-10.1); Chloride 101 mmol/L (98-107); Cholesterol 249 mg/dL (200); Creatinine, Serum 1.12 mg/dL (0.70-1.30); EST Glomerular Filtration Rate 74 mL/min (>60); Est Glom Filt Rate - Afr Amer 89 mL/min (>60); Globulin 4.5 g/dL (2.2-4.2); Glucose 110 mg/dL (74-106); High Density Lipoprotein 71 mg/dL; PSA,Total - Annual Screen 1.06 ng/mL (0.00-4.00); Potassium 3.8 mmol/L (3.5-5.1); Protein, Total 8.5 g/dL (6.4-8.2); Sodium Level 135 mmol/L (136-145); Triglycerides 84 mg/dL; Very Low Density Lipoprotein 17 mg/dL (5-40)
[2022-10-15 15:18] LABS: Hemoglobin A1c 5.4 % (3.8-5.6)
== END | disposition home or self-care (01) ==
LOC: BIMLAB 08:30
PROVIDERS: PCP Internal Medicine; Referring Provider Internal Medicine; Visit Provider Internal Medicine
DX: I10 Essential (primary) hypertension (principal); R73.9 Hyperglycemia, unspecified; R35.1 Nocturia
CPT/HCPCS: 36415; 80053; 80061; 83036; 84153; 85025; G0103

== ENCOUNTER → 2023-09-19 | Outpatient (CLI) | payer BC, SELFPAY ==
[2023-09-19 08:24] LABS: Bacteria 0 SEEN /hpf (None Seen); Mucous, Urine 0 SEEN /hpf (<or=2+); Red Blood Cells-Urine 0 SEEN /hpf (0-5)
[2023-09-19 12:04] LABS: Absolute Lymphocyte Count 1.95 X10^3/uL (0.83-4.51); Absolute Neutrophil Count 2.2 X10^3/uL (2.0-7.7); Basophil# 0.09 X10^3/uL; Basophil% 1.8 % (0-1); Eosinophils% 7.8 % (0-5); Hematocrit 43.4 % (40-54); Hemoglobin 13.7 g/dL (13.0-16.5); Lymphocyte # 1.95 X10^3/ul (0.83-4.51); Lymphocyte % 38.1 % (19-41); Mean Corp Hgb Conc 31.6 g/dL (32-36); Mean Corpuscular Hgb 28.3 pg (27.0-32.0); Mean Corpuscular Volume 89.7 fL (80-94); Mean Platelet Vol. 9.5 fl (6.2-12.0); Monocyte# 0.52 X10^3/uL; Monocyte% 10.2 % (0-10); NRBC Flagged by Analyzer 0 % (0-5); Neutrophil # 2.15 X10^3/uL (2.7-7.7); Neutrophil % 41.9 % (47-70); Platelet Count 365 K/mm3 (150-450); RBC Distribution Width CV 12.3 % (11.6-14.6); RBC Distribution Width SD 40.7 fl (35.1-43.9); Red Blood Count 4.84 M/mm3 (4.6-6.2); White Blood Count 5.1 K/mm3 (4.4-11.0)
[2023-09-19 12:20] LABS: Color, Urine Yellow (Yellow); Glucose, Dipstick Normal (Normal); Ketone-Dipstick 5 mg/dl (Negative); Leukocyte Esterase-Dipstick 25 /ul (Negative); Nitrite-Dipstick Negative (Negative); Occult Blood-Urine Negative /ul (Negative); Protein-Dipstick 15 mg/dl (Negative); Urine Bilirubin Dipstick Negative (Negative); Urine Clarity Clear (Clear); Urine Urobilinogen Normal (Normal)
[2023-09-19 12:31] LABS: Squamous Epithelial Cells - UA 0-5 SEEN /hpf (0-5)
[2023-09-19 12:32] LABS: White Blood Cells 0-5 SEEN /hpf (0-5)
[2023-09-19 13:11] LABS: ALB/GLOB Ratio 0.9 RATIO (0.9-2.4); AST(SGOT) 21 U/L (15-37); Alanine Aminotransfer ALT/SGPT 31 U/L (16-61); Albumin, Serum 3.9 g/dL (3.2-5.0); Alkaline Phosphatase 61 U/L (45-117); Anion Gap 6 (5-15); BUN 20 mg/dL (7-18); BUN/Creat Ratio 17.9 RATIO (10-20); Calcium,Total 9.6 mg/dL (8.5-10.1); Chloride 104 mmol/L (98-107); Cholesterol 224 mg/dL (200); Creatinine, Serum 1.12 mg/dL (0.70-1.30); EST Glomerular Filtration Rate 73 mL/min (>60); Est Glom Filt Rate - Afr Amer 89 mL/min (>60); Globulin 4.3 g/dL (2.2-4.2); Glucose 118 mg/dL (74-106); High Density Lipoprotein 55 mg/dL; PSA,Total- Diagnostic 0.92 ng/mL (0.0-4.0); Potassium 3.7 mmol/L (3.5-5.1); Protein, Total 8.2 g/dL (6.4-8.2); Sodium Level 139 mmol/L (136-145); Triglycerides 94 mg/dL; Very Low Density Lipoprotein 19 mg/dL (5-40)
== END | disposition home or self-care (01) ==
LOC: BIMLAB 08:23
PROVIDERS: PCP Internal Medicine; Visit Provider Internal Medicine
DX: I10 Essential (primary) hypertension (principal); E78.5 Hyperlipidemia, unspecified; N40.0 Benign prostatic hyperplasia without lower urinary tract symptoms
CPT/HCPCS: 36415; 80053; 80061; 81001; 84153; 85025

== ENCOUNTER → 2024-07-10 | Outpatient (CLI) | payer BC, SELFPAY ==
--- NOTE | 2024-07-10 06:52 | CT_ITS ---
STUDY: CT CHEST WITHOUT CONTRAST REASON FOR EXAM: Male, 54 years old. HTN and hyperlipidemia RADIATION DOSAGE (If Supplied By Facility): CTDIvol = ( 12.19 ) mGy, DLP = ( 195.04 ) mGycm TECHNIQUE: Transaxial imaging was performed without the administration of intravenous contrast material. Cardiac over read examination. Individualized dose optimization techniques were used for this CT. COMPARISON: No relevant priors. FINDINGS: CHEST The lungs are normal. There is no demonstrated pleural abnormality. Normal heart and pericardium. No Normal mediastinum. Normal hilar regions. Normal unenhanced pulmonary arteries. Normal aorta arch and descending thoracic aorta. Normal osseous structures. There is no demonstrated abnormality of the visualized upper abdomen. CT/Limited Chest CT Cardiac Only IMPRESSION: Normal unenhanced CT chest T abdomen examination. Electronically Signed: Benny Mao MD at 12:53 EST ,
--- NOTE | 2024-07-10 16:15 | CA.SCORE ---
Calcium Scoring Date of Study:: 07/10/24 Indications Indications: Family history of hyperlipidemia Coronary Calcium Scoring: High-resolution Computed Tomographic imaging of the chest was performed on [07/10/24 ], with particular attention paid to the coronary arteries. Images from the examination were analyzed for the presence and extent of coronary artery calcification , using coronary calcium quantification software. The patient tolerated the procedure well and there were no complications. The results of the coronary calcification analysis are provided below. Findings Coronary Artery Left Main (LM): 0 Left Anterior Descending (LAD): 0 Left Circumflex (LCX): 0 Right Coronary Artery (RCA): 0 Total Agatston Score: 0 Percentile Rankin% Calcium Scoring Interpretation: Different methods to categorize the overall amount of coronary plaque. Overall amount CAC SIS Visual of coronary plaque P1 Mild -100 <2 1-2 vessels with mild amount of plaque P2 Moderate 101-300 3-4 1-2 vessels with moderate amount, 3 vessels with mild amount of plaque P3 Severe 301-999 5-7 3 vessels with moderate amount, 1 vessel with severe amount of plaque P4 Extensive >1000 >8 2-3 vessels with severe amount of plaque Conclusion: No atherosclerotic plaquing noted
== END | disposition home or self-care (01) ==
PROVIDERS: PCP Internal Medicine; Referring Provider Physician Assistant; Visit Provider Physician Assistant
DX: I10 Essential (primary) hypertension (principal); E78.5 Hyperlipidemia, unspecified
CPT/HCPCS: 75571; 76380

== ENCOUNTER → 2025-02-19 | Outpatient (CLI) | payer BC, SELFPAY ==
[2025-02-19 08:41] LABS: Hematocrit 41.3 % (40-54); Hemoglobin 13.5 g/dL (13.0-16.5); Immature Granulocytes Count 0.010 X10^3/uL (0.0-0.0); Mean Corp Hgb Conc 32.7 g/dL (32-36); Mean Corpuscular Volume 90.2 fL (80-94); Mean Platelet Vol. 9.5 fl (6.2-12.0); NRBC Flagged by Analyzer 0 % (0-5); Platelet Count 345 K/mm3 (150-450); RBC Distribution Width CV 13.0 % (11.6-14.6); RBC Distribution Width SD 42.8 fl (35.1-43.9); Red Blood Count 4.58 M/mm3 (4.6-6.2); White Blood Count 4.9 K/mm3 (4.4-11.0)
[2025-02-19 09:46] LABS: AST(SGOT) 27 U/L (<=37); Alanine Aminotransfer ALT/SGPT 17 U/L (<=46); Albumin, Serum 4.3 g/dL (3.5-5.0); Alkaline Phosphatase 61 U/L (40-129); Anion Gap 12 (5-15); BUN 17 mg/dL (4-19); BUN/Creat Ratio 14.0 RATIO (10-20); Calcium,Total 9.8 mg/dL (7.6-11.0); Carbon Dioxide 25.8 mmol/L (21.0-32.0); Chloride 103 mmol/L (98-108); Cholesterol 231 mg/dL (<=200); Follicle Stimulating Hormone 16.5 mIU/mL; Globulin 3.8 g/dL (2.2-4.2); Glucose 108 mg/dL (70-99); Low Density Lipoprotein Calc. 146 mg/dL; Potassium 3.9 mmol/L (3.3-5.1); Triglycerides 95 mg/dL; Very Low Density Lipoprotein 19 mg/dL (5-40); cholesterol:hdl ratio screen 3.49
[2025-02-23 14:08] LABS: PROLACTIN 36.5 ng/mL (3.6-25.2); Testosterone, % Free 3.06 % (1.50-4.20); Testosterone, Free 10.56 ng/dL (5.00-21.00)
== END | disposition home or self-care (01) ==
LOC: LAB 07:39
PROVIDERS: PCP Internal Medicine; Referring Provider Internal Medicine; Visit Provider Internal Medicine
DX: E29.1 Testicular hypofunction (principal); I10 Essential (primary) hypertension; E78.3 Hyperchylomicronemia
CPT/HCPCS: 36415; 80053; 80061; 83001; 83002; 84146; 84402; 84403; 85025

== ENCOUNTER → 2025-06-20 | Outpatient (CLI) | payer BC, SELFPAY ==
--- OUTSIDE RECORDS SUMMARY | 2025-06-20 08:17 | XMS RPT_ITS | CCD ---
Author Organization [facility] Care Team Providers Care Cd Reactor Operator Name Role Phone Dr. Ye Kim Primary Care Provider [phone] Dr. Ye Kim Attending Provider [phone] Dr. Ye Kim Referring Provider [phone] Unavailable Primary Care Provider UnavailMADINA Stewart Referring Unavailable MADINA FRANK Attending Unavailable Judy BURDICK, Dr. Belcher Primary Care Provider Judy BURDICK, Dr. Belcher Attending Provider [phone] Dr. Ye Kim MD Referring Provider [phone] Jamal Mcgregor Attending Unavailable Oleghe, Efewongbe Primary Care Unavailable Oleghe, Efewongbe Referring Unavailable Oleghe, Efewongbe Attending Unavailable Oleghe, Efewongbe Referring Unavailable Oleghe, Efewongbe Primary Care Unavailable Jamal Mcgregor Attending Unavailable Jamal Mcgregor Referring Unavailable Oleghe, Efewongbe Primary Care Unavailable Oleghe, Efewongbe Primary Care Unavailable Oleghe, Efewongbe Attending Unavailable Oleghe, Efewongbe Referring Unavailable Oleghe, Efewongbe Primary Care Unavailable Enrique Jolley Attending Unavailable Jamal Mcgregor Consulting Unavailable Jamal Mcgregor Referring Unavailable Medications Current Medications Medication Drug Class(es) Dates Sig (Normalized) Sig (Original) [id number] 200 actuat albuterol 0.09 mg/actuat metered dose inhaler (9 sources) beta2-Adrenergic Agonist Start: 08-12-2023 End: 09-14-2023 take 2 puff(s) by mouth every six hours for wheezing Albuterol Sulfate 90 mcg/actuation HFA aerosol inhaler Active 0 .ROUTE .COMPLEX 8.5 0 September 14, 2023 4:35pm inhale 2 puffs by mouth and INTO THE LUNGS every 6 hours if needed for wheezing / shortness of breath Start: 11-17-2021 End: 08-12-2023 Albuterol Sulfate 90 mcg/act uation HFA aerosol inhaler Discontinued 2 NMA INHALATION EVERY 6 HOURS as needed for shortness of breath or wheezing 8.5 1 November 17, 2021 12:00am August 12, 2023 3:01pm Start: 11-17-2021 End: 08-12-2023 take 1 puff(s) by inhalation every six hours Albuterol Sulfate Discontinued 2 PUFF INHALATION EVERY 6 HOURS 8.5 November 17, 2021 12:00am August 12, 2023 3:01pm MDI spacer (2 sources) Start: 06-08-2024 MDI spacer Act carla 0 .Route .MEDSUPPLY 1 0 June 08, 2024 1:00am Bronchospasm Acute bronchospasm Inhaler use to be used with use of inhaler Completed/Discontinued Medications Medication Drug Class(es) Dates Sig (Normalized) Sig (Original) amoxicillin 875 mg / clavulanate 125 mg oral tablet (9 sources) Penicillin-class Antibacterial Start: 11-17-2019 End: 12-04-2019 Amoxicillin-Pot Clavulanate 875-125 mg tablet Discontinued 1 {tbl} PO Q12H 14 7 0 November 27, 2019 8:13am December 03, 2019 12:00am December 04, 2019 12:02am Start: 11-17-2019 End: 12-04-2019 take 1 tablet by mouth every twelve hours Amoxicillin-Pot Clavulanate Discontinued 1 TABLET PO Q12H 14 7 November 27, 2019 8:13am December 04, 2019 12:02am Start: 10-12-2019 End: 11-16-2019 Amoxicillin-Pot Clavulanate (Augmentin) 875-125 mg tablet Discontinued 1 {tbl} PO TWICE A DAY 14 0 October 12, 2019 12:00am November 16, 2019 11:17am atorvastatin 20 mg oral tablet (9 sources) HMG-CoA Reductase Inhibitor Start: 09-19-2023 End: 06-08-2024 take 1 tablet by mouth once daily Atorvastatin 20 mg tablet Discontinued 0 .ROUTE .COMPLEX 90 0 September 19, 2023 6:09pm June 08, 2024 9:23am 20 MG ORALLY DAILY Start: 10-18-2022 End: 09-14-2023 take 1 tablet by mouth once daily Atorvastatin 20 mg tablet Discontinued 0 .ROUTE .COMPLEX 90 0 January 14, 2023 8:41am September 14, 2023 4:19pm 20 MG ORALLY DAILY benzonatate 200 mg oral capsule (2 sources) Non-narcotic Antitussive Start: 10-03-2023 End: 06-08-2024 take 1 capsule by mouth three times daily as needed for cough Benzonatate 200 mg capsule Discontinued 200 mg PO THREE TIMES A DAY as needed for cough 14 0 October 03, 2023 12:00am June 08, 2024 9:20am candesartan cilexetil 32 mg oral tablet (20 sources) Angiotensin 2 Receptor Judy Start: 05-30-2019 End: 05-07-2024 take 1 tablet by mouth once daily Candesartan 32 mg tablet Discontinued 32 mg PO DAILY 90 May 30, 2023 1:33pm May 07, 2024 8:53am htn Start: 05-25-2019 End: 05-30-2019 take 32 mg by mouth once daily Candesartan Discontinue d 32 MG PO DAILY May 25, 2019 9:13am May 30, 2019 9:30pm Start: 11-20-2018 End: 05-25-2019 take 24 mg by mouth once daily Candesartan Discontinue d 24 MG PO DAILY 90 November 20, 2018 11:18am May 25, 2019 9:14am Start: 11-20-2018 End: 05-30-2019 take 1 tablet by mouth once daily Candesartan 16 mg tablet Discontinued 32 mg PO DAILY May 25, 2019 9:13am May 30, 2019 9:30pm fexofenadine hydrochloride 60 mg oral tablet (6 sources) Histamine-1 Receptor Antagonist Start: 11-20-2018 End: 02-20-2019 take 1 tablet by mouth twice daily as needed Fexofenadine (Ada Allergy) 60 mg tablet Discontinued 60 mg PO TWICE A DAY as needed November 20, 2018 10:52am February 20, 2019 8:02am hydroCHLOROthiazide 25 mg oral tablet (20 sources) Thiazide Diuretic Start: 01-16-2020 End: 02-08-2024 take 1 tablet by mouth once daily Hydrochlorothiazide 25 mg tablet Discontinued 25 mg PO DAILY 90 February 28, 2023 1:25pm February 08, 2024 8:02am Start: 05-25-2019 End: 01-16-2020 take 1 tablet by mouth once daily Hydrochlorothiazide 12.5 mg tablet Discontinued 0 .ROUTE .COMPLEX 90 October 10, 2019 9:06am January 15, 2020 4:41pm TAKE 1 TABLET BY MOUTH EVERY DAY linseed oil 1000 mg oral capsule (3 sources) Start: 02-17-2018 End: 05-03-2019 take 1 capsule by mouth once daily Flaxseed Oil (Casper-3 Flaxseed Oil) 1,000 mg capsule Discontinued 1000 mg PO daily February 17, 2018 12:00am May 03, 2019 5:33pm losartan potassium 100 mg oral tablet (11 sources) Angiotensin 2 Receptor Judy Start: 04-25-2018 End: 11-20-2018 take 1 tablet by mouth once daily Losartan 100 mg tablet Discontinued 100 mg PO daily 90 April 25, 2018 1:20pm November 20, 2018 10:44am Start: 05-18-2017 End: 04-25-2018 take 1 tablet by mouth once daily Losartan 50 mg tablet Discontinued 50 mg PO daily 90 February 17, 2018 10:10am April 25, 2018 1:21pm Magnesium (3 sources) Start: 08-26-2021 End: 11-17-2021 take 1 tablet by mouth once daily Magnesium 200 mg Tablet Discontinued 200 mg PO DAILY August 26, 2021 1:00am November 17, 2021 2:29pm Start: 08-26-2021 End: 11-17-2021 take 200 mg by mouth once daily Magnesium Discontinued 200 MG PO DAILY August 26, 2021 1:00am November 17, 2021 2:29pm meloxicam 15 mg oral tablet (6 sources) Nonsteroidal Anti-inflammatory Drug Start: 09-26-2020 End: 04-28-2021 take 1 tablet by mouth once daily Meloxicam 15 mg tablet Discontinued 15 mg PO DAILY 90 March 24, 2021 8:50am April 28, 2021 4:02pm methylPREDNISolone 4 mg oral tablet (5 sources) Corticosteroid Start: 10-03-2023 End: 06-08-2024 take 1 tablet by mouth once Methylprednisolone (Medrol (Jonathan)) 4 mg tablets,dose pack Discontinued 0 PO per package directions October 03, 2023 12:00am June 08, 2024 9:20am PO PER PKG DIR Start: 06-23-2022 End: 10-15-2022 take 1 tablet by mouth once Methylprednisolone (Medrol (Jonathan)) 4 mg tablets,dose pack Discontinued 0 PO per package directions June 23, 2022 1:00am October 15, 2022 7:57am PO PER PKG DIR metoprolol tartrate 50 mg oral tablet (10 sources) beta-Adrenergic Judy Start: 06-08-2024 End: 02-18-2025 Metoprolol Tartrate 50 mg tablet Discontinued 50 mg PO daily 1 June 08, 2024 1:00am February 18, 2025 7:29am take tablet 45-60 minutes prior to scan Start: 05-18-2017 End: 11-20-2018 take 1 tablet by mouth once daily Metoprolol Succinate 50 mg tablet extended release 24 hr Discontinued 50 mg PO daily 90 3 February 17, 2018 10:11am November 20, 2018 10:45am Mometasone 100 mcg/actuation HFA aerosol inhaler (2 sources) Start: 06-08-2024 End: 02-18-2025 Mometasone 100 mcg/actuation HFA aerosol inhaler Discontinued 2 NMA INHALATION TWICE A DAY 13 June 08, 2024 1:00am February 18, 2025 7:29am omega-3 acid ethyl esters (u sp) 1000 mg oral capsule (6 sources) Start: 08-26-2021 End: 11-17-2021 Casper 2-Htb-Dnz-Fish Oil (Fi sh Oil) 1,000 mg (120 mg-180 mg) Capsule Discontinued 1 NMA PO TWICE A DAY August 26, 2021 1:00am November 17, 2021 2:29pm Start: 01-16-2020 End: 04-28-2021 take 1 capsule by mouth once daily Casper-3 Fatty Acids 1,250 mg capsule Discontinued 1250 mg PO DAILY January 16, 2020 12:00am April 28, 2021 4:02pm Start: 01-16-2020 End: 04-28-2021 take 1 capsule by mouth once daily omega-3 fatty acids 1,250 mg capsule Discontinued 1250 MG PO DAILY January 16, 2020 12:00am April 28, 2021 4:02pm predniSONE 20 mg oral tablet (6 sources) Start: 11-17-2021 End: 06-23-2022 take 2 tablets by mouth once daily Prednisone 20 mg tablet Discontinued 40 mg PO DAILY November 17, 2021 3:00pm June 23, 2022 9:07am Start: 11-17-2021 End: 06-23-2022 take 40 mg by mouth once daily Prednisone Discontinued 40 MG PO DAILY November 17, 2021 3:00pm June 23, 2022 9:07am Start: 11-17-2021 End: 11-17-2021 take 1 tablet by mouth once daily Prednisone 20 mg tablet Discontinued 20 mg PO DAILY November 17, 2021 12:00am November 17, 2021 3:00pm tamsulosin hydrochloride 0.4 mg oral capsule (3 sources) alpha-Adrenergic Judy Start: 09-19-2023 End: 06-08-2024 take 1 capsule by mouth at bedtime Tamsulosin 0.4 mg capsule Discontinued 0.4 mg PO AT BEDTIME September 19, 2023 12:00am June 08, 2024 9:23am Problems Active Problems Problem Classification Problem Date Documented Da te Episodic/Chronic Chronic obstructive pulmonary disease and bronchiectasis (3 sources) Bronchitis; Translations: [Bronchitis, not specified as acute or chronic] 11-17-2021 Episodic Diabetes mellitus without complication (3 sources) Hyperglycemia; Translations: [Hyperglycemia, unspecified] 10-15-2022 Episodic Disorders of lipid metabolism (10 sources) Hyperlipidemia; Translations: [Hyperlipidemia, unspecified] Onset: 08-12-2016 02-17-2018 Chronic Essential hypertension (9 sources) Essential hypertension; Translations: [Essential (primary) hypertension] Onset: 02-09-2016 11-17-2021 Chronic Genitourinary symptoms and ill-defined conditions (3 sources) Nocturia; Translations: [Nocturia] 10-15-2022 Episodic Hyperplasia of prostate (4 sources) Benign prostatic hyperplasia; Translations: [Benign prostatic hyperplasia without lower urinary tract symptoms] 09-14-2023 Chronic Nonspecific chest pain (3 sources) Tight chest; Translations: [Other chest pain] 11-17-2021 Episodic Other endocrine disorders (3 sources) Male hypogonadism; Translations: [Testicular hypofunction] 02-18-2025 Chronic Other endocrine disorders (1 source) Testicular hypofunction; Translations: [Testicular hypofunction] Onset: 02-25-2025 Chronic Other lower respiratory disease (7 sources) Dyspnea; Translations: [Shortness of breath] 10-15-2022 Episodic Other lower respiratory disease (3 sources) Cough; Translations: [Cough] 11-17-2021 Episodic Other screening for suspected conditions (not mental disorders or infectious disease) (6 sources) Patient encounter status; Translations: [Encounter for screening for malignant neoplasm of colon] Onset: 01-14-2025 08-20-2021 Episodic Other upper respiratory disease (3 sources) Bronchospasm; Translations: [Acute bronchospasm] 09-14-2023 Episodic Other upper respiratory disease (1 source) Acute bronchospasm; Translations: [Acute bronchospasm] 09-14-2023 Episodic Other upper respiratory infections (3 sources) Upper respiratory infection; Translations: [Acute upper respiratory infection, unspecified] 11-17-2021 Episodic Residual codes; unclassified (1 source) Reduced libido; Translations: [Decreased libido] 02-04-2025 Episodic Residual codes; unclassified (1 source) Decreased libido; Translations: [Low libido] Onset: 02-07-2025 Episodic Spondylosis; intervertebral disc disorders; other back problems (3 sources) Low back pain; Translations: [Low back pain] 10-15-2022 Episodic Past or Other Problems Problem Classification Problem Date Documented Da te Episodic/Chronic Other male genital disorders (2 sources) Azoospermia; 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 [place], [place], [id number] (294) Testosterone, Total / Freeon 02-23-2025 TESTOSTER,FREE 10.56 ng/dL Normal 5.00-21.00 [facility] Comment on above: Order Comment: N Performed By: #### L 3100.5400, L3100.5055, L3100.5310, L100.0100, L500.4050, L500.4100 #### [facility] [address] [place], [address] TESTOSTER,TOTAL 345 ng/dL Normal 264-916 [facility] Comment on above: Order Comment: N Result Comment: Adul t male reference interval is based on a population of healthy nonobese males (BMI <30) between 19 and 39 years old. Bela, et.al. JCEM 2017,102;7794-7437. PMID: 21124085. Performed By: #### L 3100.5400, L3100.5055, L3100.5310, L100.0100, L500.4050, L500.4100 #### [facility] [address] [place], [address] TESTOSTERONE,%F 3.06 Normal 1.50-4.20 [facility] Comment on above: Order Comment: N Performed By: #### L 3100.5400, L3100.5055, L3100.5310, L100.0100, L500.4050, L500.4100 #### [facility] [address] [place], [address] Absolute lymphocyte countOrd ered By: Ye Kim on 02-19-2025 Lymphocytes Auto (Unsp spec) [#/Vol] 1.84 10*3/uL 0.83-4.51 [facility] Absolute neutrophil countOrd ered By: Venessawisam Jorge Luisderrick on 02-19-2025 Neutrophils (Bld) [#/Vol] 2.2 10*3/uL 2.0-7.7 [facility] Anion gap in Serum or Plasma Ordered By: Ye Kim on 02-19-2025 Anion gap [Moles/Vol] 12 mmol/L 5- [facility] Automated lymphocyte count a s percentage of total leukocytesOrdered By: Ye Kim on 02-19-2025 Lymphocytes/100 WBC Auto (Unsp spec) 37.2 % [facility] BUN/creatinine ratioOrdered By: [facility] Humphreyder[facility] on 02-19-2025 Urea nitrogen/Creatinine [Mass ratio] 14.0 mg/mg - [facility] Basophil percentageOrdered B y: Ye Kim on 02-19-2025 Basophils/100 WBC (Bld) 1.0 % 0-1 [facility] Bilirubin, totalOrdered By: Ye Kim on 02-19-2025 Bilirubin [Mass/Vol] 0.73 mg/dL 0.00-1.30 [facility] CBC W/Diff, Automatedon 02-01 Absolute Lymph 1.84 X10 3/uL Normal 0.83-4.51 [facility] Comment on above: Performed By: #### L 3100.5400, L3100.5055, L3100.5310, L100.0100, L500.4050, L500.4100 #### [facility] [address] [place], [address] Absolute Neut 2.2 X10 3/uL Normal 2.0-7.7 [facility] Comment on above: Performed By: #### L 3100.5400, L3100.5055, L3100.5310, L100.0100, L500.4050, L500.4100 #### [facility] [address] [place], [address] Basophils/100 WBC (Bld) 1.0 % Normal 0-1 [facility] Comment on above: Performed By: #### L 3100.5400, L3100.5055, L3100.5310, L100.0100, L500.4050, L500.4100 #### [facility] [address] [place], [address] Eosinophils/100 WBC (Bld) 8.9 % High 0-5 [facility] Comment on above: Performed By: #### L 3100.5400, L3100.5055, L3100.5310, L100.0100, L500.4050, L500.4100 #### [facility] [address] [place], [address] Erythrocyte distribution width (RBC) [Ratio] 13.0 % Normal 11.6-14.6 [facility] Comment on above: Performed By: #### L 3100.5400, L3100.5055, L3100.5310, L100.0100, L500.4050, L500.4100 #### [facility] [address] [place], [address] Hematocrit (Bld) [Volume fraction] 41.3 % Normal 40-54 [facility] Comment on above: Performed By: #### L 3100.5400, L3100.5055, L3100.5310, L100.0100, L500.4050, L500.4100 #### [facility] [address] [place], [address] Hemoglobin (Bld) [Mass/Vol] 13.5 g/dL Normal 13.0-16.5 [facility] Comment on above: Performed By: #### L 3100.5400, L3100.5055, L3100.5310, L100.0100, L500.4050, L500.4100 #### [facility] [address] [place], [address] IG% 0.200 Normal 0.0-0.9 [facility] Comment on above: Result Comment: IG% - Immature Granulocytes (promyelocytes, myelocytes and metamyelocytes) > 1% indicates that a LEFT SHIFT is Present. Performed By: #### L 3100.5400, L3100.5055, L3100.5310, L100.0100, L500.4050, L500.4100 #### [facility] [address] [place], [address] Lymphocytes/100 WBC (Bld) 37.2 % Normal 19-41 [facility] Comment on above: Performed By: #### L 3100.5400, L3100.5055, L3100.5310, L100.0100, L500.4050, L500.4100 #### [facility] [address] [place], [address] MCH (RBC) [Entitic mass] 29.5 pg Normal 27.0-32.0 [facility] Comment on above: Performed By: #### L 3100.5400, L3100.5055, L3100.5310, L100.0100, L500.4050, L500.4100 #### [facility] [address] [place], [address] MCHC (RBC) [Mass/Vol] 32.7 g/dL Normal 32-36 [facility] Comment on above: Performed By: #### L 3100.5400, L3100.5055, L3100.5310, L100.0100, L500.4050, L500.4100 #### [facility] [address] [place], [address] MCV (RBC) [Entitic vol] 90.2 fL Normal 80-94 [facility] Comment on above: Performed By: #### L 3100.5400, L3100.5055, L3100.5310, L100.0100, L500.4050, L500.4100 #### [facility] [address] [place], [address] Monocytes/100 WBC (Bld) 7.7 % Normal 0-10 [facility] Comment on above: Performed By: #### L 3100.5400, L3100.5055, L3100.5310, L100.0100, L500.4050, L500.4100 #### [facility] [address] [place], [address] Neutrophils/100 WBC (Bld) 45.0 % Low 47-70 [facility] Comment on above: Performed By: #### L 3100.5400, L3100.5055, L3100.5310, L100.0100, L500.4050, L500.4100 #### [facility] [address] [place], [address] Nucleated RBC (Bld) [#/Vol] 0 10*3/uL Normal 0-5 [facility] Comment on above: Performed By: #### L 3100.5400, L3100.5055, L3100.5310, L100.0100, L500.4050, L500.4100 #### [facility] [address] [place], [address] Platelet mean volume (Bld) [Entitic vol] 9.5 fL Normal 6.2-12.0 [facility] Comment on above: Performed By: #### L 3100.5400, L3100.5055, L3100.5310, L100.0100, L500.4050, L500.4100 #### [facility] [address] [place], [address] Platelets (Bld) [#/Vol] 345 10*3/uL Normal 150-450 [facility] Comment on above: Performed By: #### L 3100.5400, L3100.5055, L3100.5310, L100.0100, L500.4050, L500.4100 #### [facility] [address] [place], [place], [id number] RBC (Bld) [#/Vol] 4.58 10*6/uL Low 4.6-6.2 [facility] Comment on above: Performed By: #### L 3100.5400, L3100.5055, L3100.5310, L100.0100, L500.4050, L500.4100 #### [facility] [address] [place], [place], [id number] RDW SD 42.8 fl Normal 35.1-43.9 [facility] Comment on above: Performed By: #### L 3100.5400, L3100.5055, L3100.5310, L100.0100, L500.4050, L500.4100 #### [facility] [address] [place], [place], [id number] [phone] WBC (Bld) [#/Vol] 4.9 10*3/uL Normal 4.4-11.0 [facility] Comment on above: Performed By: #### L 3100.5400, L3100.5055, L3100.5310, L100.0100, L500.4050, L500.4100 #### [facility] [address] [place], [place], [id number] Calculated very low density lipoprotein (VLDL) cholesterol measurementOrdered By: Ye Kim on 02-19-2025 Calculated very low density lipoprotein (VLDL) cholesterol measurement 19 mg/dL 5-40 [facility] Carbon dioxide, total [Moles /volume] in Central venous bloodOrdered By: Ye Kim on 02-19-2025 CO2 [Moles/Vol] 25.8 mmol/L 21.0-32.0 [facility] Chloride assayOrdered By: Thiago Kim on 02-19-2025 Chloride [Moles/Vol] 103 mmol/L 98-108 [facility] Comprehensive Metabolic Prof ilon 08-19-2025 Albumin [Mass/Vol] 4.3 g/dL Normal 3.5-5.0 [facility] Comment on above: Performed By: #### L 3100.5400, L3100.5055, L3100.5310, L100.0100, L500.4050, L500.4100 #### [facility] [address] [place], [address] Albumin/Globulin [Mass ratio] 1.1 {ratio} Normal 0.9-2.4 [facility] Comment on above: Performed By: #### L 3100.5400, L3100.5055, L3100.5310, L100.0100, L500.4050, L500.4100 #### [facility] [address] [place], [address] ALK PHOS 61 U/L Normal 40-129 [facility] Comment on above: Performed By: #### L 3100.5400, L3100.5055, L3100.5310, L100.0100, L500.4050, L500.4100 #### [facility] [address] [place], [address] ALT [Catalytic activity/Vol] 17 U/L Normal <=46 [facility] Comment on above: Performed By: #### L 3100.5400, L3100.5055, L3100.5310, L100.0100, L500.4050, L500.4100 #### [facility] [address] [place], [address] AST [Catalytic activity/Vol] 27 U/L Normal <=37 [facility] Comment on above: Performed By: #### L 3100.5400, L3100.5055, L3100.5310, L100.0100, L500.4050, L500.4100 #### [facility] [address] [place], [address] Bilirubin [Mass/Vol] 0.73 mg/dL Normal 0.00-1.30 [facility] Comment on above: Performed By: #### L 3100.5400, L3100.5055, L3100.5310, L100.0100, L500.4050, L500.4100 #### [facility] [address] [place], [address] BUN/CRE 14.0 RATIO Normal 10-20 [facility] Comment on above: Performed By: #### L 3100.5400, L3100.5055, L3100.5310, L100.0100, L500.4050, L500.4100 #### [facility] [address] [place], [address] Calcium [Mass/Vol] 9.8 mg/dL Normal 7.6-11.0 [facility] Comment on above: Performed By: #### L 3100.5400, L3100.5055, L3100.5310, L100.0100, L500.4050, L500.4100 #### [facility] [address] [place], [address] Chloride [Moles/Vol] 103 mmol/L Normal 98-108 [facility] Comment on above: Performed By: #### L 3100.5400, L3100.5055, L3100.5310, L100.0100, L500.4050, L500.4100 #### [facility] [address] [place], [address] CO2 [Moles/Vol] 25.8 mmol/L Normal 21.0-32.0 [facility] Comment on above: Performed By: #### L 3100.5400, L3100.5055, L3100.5310, L100.0100, L500.4050, L500.4100 #### [facility] [address] [place], [address] Creatinine [Mass/Vol] 1.22 mg/dL High 0.70-1.20 [facility] Comment on above: Performed By: #### L 3100.5400, L3100.5055, L3100.5310, L100.0100, L500.4050, L500.4100 #### [facility] [address] [place], [place], [id number] (824) GAP 12 Normal 5-15 [facility] Comment on above: Performed By: #### L 3100.5400, L3100.5055, L3100.5310, L100.0100, L500.4050, L500.4100 #### [facility] [address] [place], [place], [id number] (420) GFR/1.73 sq M.predicted among non-blacks MDRD (S/P/Bld) [Vol rate/Area] 71 mL/min/{1.73_m2} Normal >60 [facility] Comment on above: Result Comment: mL/m in/1.73m2 CKD-EPI Creatinine Equation (2020) Performed By: #### L 3100.5400, L3100.5055, L3100.5310, L100.0100, L500.4050, L500.4100 #### [facility] [address] [place], [address] (600) Globulin (S) [Mass/Vol] 3.8 g/dL Normal 2.2-4.2 [facility] Comment on above: Performed By: #### L 3100.5400, L3100.5055, L3100.5310, L100.0100, L500.4050, L500.4100 #### [facility] [address] [place], [place], [id number] (192) Glucose [Mass/Vol] 108 mg/dL High 70-99 [facility] Comment on above: Performed By: #### L 3100.5400, L3100.5055, L3100.5310, L100.0100, L500.4050, L500.4100 #### [facility] [address] [place], [address] Potassium [Moles/Vol] 3.9 mmol/L Normal 3.3-5.1 [facility] Comment on above: Performed By: #### L 3100.5400, L3100.5055, L3100.5310, L100.0100, L500.4050, L500.4100 #### [facility] [address] [place], [address] Sodium [Moles/Vol] 141 mmol/L Normal 133-145 [facility] Comment on above: Performed By: #### L 3100.5400, L3100.5055, L3100.5310, L100.0100, L500.4050, L500.4100 #### [facility] [address] [place], [address] T PROT 8.1 g/dL Normal 5.9-8.4 [facility] Comment on above: Performed By: #### L 3100.5400, L3100.5055, L3100.5310, L100.0100, L500.4050, L500.4100 #### [facility] [address] [place], [address] Urea nitrogen [Mass/Vol] 17 mg/dL Normal 4-19 [facility] Comment on above: Performed By: #### L 3100.5400, L3100.5055, L3100.5310, L100.0100, L500.4050, L500.4100 #### [facility] [address] [place], [address] Eosinophil percentageOrdered By: Ye Kim on 02-19-2025 Eosinophils/100 WBC (Bld) 8.9 % High 0-5 [facility] Erythrocyte distribution wid th ratioOrdered By: Ye Kim on 02-19-2025 Erythrocyte distribution width (RBC) [Ratio] 13.0 % 11.6-14.6 [facility] Erythrocyte distribution wid th standard deviationOrdered By: Ye Kim on 02-19-2025 Erythrocyte distribution width (RBC) [Ratio] 42.8 fl 35.1-43.9 [facility] FSH and LHon 02-19-2025 FSH 16.5 mIU/mL Normal [facility] Comment on above: Result Comment: FEMA LE: Follicular: 1.4 - 18.1 mIU/mL Midcycle: 3.4 - 33.4 mIU/mL Luteal: 1.5 - 9.1 mIU/mL Post Menopause: 23.0 - 116.3 mIU/mL MALE: 1.4 - 18.1 mIU/mL Performed By: #### L 3100.5400, L3100.5055, L3100.5310, L100.0100, L500.4050, L500.4100 #### [facility] [address] [place], [address] LH 7.0 mIU/mL Normal [facility] Comment on above: Result Comment: FEMA LE: Follicular: 1.9-12.5 mIU/mL Midcycle: 8.7-76.3 mIU/mL Luteal: 0.5-16.9 mIU/mL Post Menopause: 15.9-54.0 mIU/mL MALE: 20-70 Years: 1.5-9.3 mIU/mL >70 Years: 3.1-34.6 mIU/mL Performed By: #### L 3100.5400, L3100.5055, L3100.5310, L100.0100, L500.4050, L500.4100 #### [facility] [address] [place], [address] Free testosterone percentage Ordered By: Ye Kim on 02-19-2025 Testosterone Free/Testosterone.tota l [Mass fraction] 3.06 % 1.50-4.20 [facility] Glomerular filtration rate ( GFR) estimation/1.73 sq m using serum, plasma, or whole bOrdered By: Ye Kim on 02-19-2025 GFR/1.73 sq M.predicted among non-blacks MDRD (S/P/Bld) [Vol rate/Area] 71 mL/min/{1.73_m2} >60 [facility] Comment on above: mL/min/1.73m2 CKD-EP I Creatinine Equation (2020) Hematocrit Auto (Bld) [Volum e fraction]Ordered By: Ye Kim on 02-19-2025 Hematocrit (Bld) [Volume fraction] 41.3 % 40-54 [facility] Hemoglobin measurementOrdere d By: Ye Kim on 02-19-2025 Hemoglobin (Bld) [Mass/Vol] 13.5 g/dL 13.0-16.5 [facility] Immature granulocytes/100 WB C Auto (Bld)Ordered By: Ye Kim on 02-19-2025 Immature granulocytes/100 WBC (Bld) 0.200 % 0.0-0.9 [facility] Comment on above: IG% - Immature Granu locytes (promyelocytes, myelocytes and metamyelocytes) > 1% indicates that a LEFT SHIFT is Present. LDL calc ser/plasOrdered By: Ye Kim on 02-19-2025 Cholesterol in LDL [Mass/Vol] 146 mg/dL [facility] Comment on above: Zabhedaquz=396-335 m g/dL & Higher Dmcb=373 mg/dL or greaterFriedwald Equation for LDL-C LH ser/plasOrdered By: Angel Kim on 02-19-2025 Lutropin Qn 7.0 m[IU]/mL [facility] Comment on above: FEMALE:Follicular: 1 .9-12.5 mIU/mLMidcycle: 8.7-76.3 mIU/mLLuteal: 0.5-16.9 mIU/mLPost Menopause: 15.9-54.0 mIU/mLMALE:20-70 Years: 1.5-9.3 mIU/mL>70 Years: 3.1-34.6 mIU/mL Laboratory - Chemistry and C hemistry - challengeOrdered By: Ye Kim on 02-19-2025 AST [Catalytic activity/Vol] 27 U/L <38 [facility] Lipid Profileon 02-19-2025 CHOL:HDL 3.49 Normal [facility] Comment on above: Performed By: #### L 3100.5400, L3100.5055, L3100.5310, L100.0100, L500.4050, L500.4100 #### [facility] [address] [place], [address] Cholesterol [Mass/Vol] 231 mg/dL High <=200 [facility] Comment on above: Result Comment: Chol esterol level, Desirable <200 mg/dL Borderline high cholesterol 200-239 mg/dL High cholesterol >=240 mg/dL Recommendations of the NCEP Adult Treatment Panel for the following risk-cutoff thresholds for the [place] population. Performed By: #### L 3100.5400, L3100.5055, L3100.5310, L100.0100, L500.4050, L500.4100 #### [facility] [address] [place], [address] Cholesterol in HDL [Mass/Vol] 66 mg/dL Normal [facility] Comment on above: Result Comment: Claudia onal Cholesterol Education Program (NCEP) guidelines: <40 mg/dL: Low HDL-cholesterol (major risk factor for CHD) >= 60 mg/dL: High HDL-cholesterol (negative risk factor for CHD) HDL-cholesterol is affected by a number of factors, e.g. smoking, exercise, hormones, sex and age. Performed By: #### L 3100.5400, L3100.5055, L3100.5310, L100.0100, L500.4050, L500.4100 #### [facility] [address] [place], [address] Cholesterol in LDL [Mass/Vol] 146 mg/dL Normal [facility] Comment on above: Result Comment: Bord hzyblb=000-066 mg/dL Higher Rrpo=856 mg/dL or greater Friedwald Equation for LDL-C Performed By: #### L 3100.5400, L3100.5055, L3100.5310, L100.0100, L500.4050, L500.4100 #### [facility] [address] [place], [place], [id number] Cholesterol in VLDL [Mass/Vol] 19 mg/dL Normal 5-40 [facility] Comment on above: Performed By: #### L 3100.5400, L3100.5055, L3100.5310, L100.0100, L500.4050, L500.4100 #### [facility] [address] [place], [address] Triglyceride [Mass/Vol] 95 mg/dL Normal [facility] Comment on above: Result Comment: The drugs N-Acetylcysteine and Metamizole may falsely depress this assay. Normal range: <150 mg/dL Borderline High: 150-199 mg/dL High: 200-499 mg/dL Very High: >500 mg/dL Performed By: #### L 3100.5400, L3100.5055, L3100.5310, L100.0100, L500.4050, L500.4100 #### [facility] [address] [place], [address] MCV (mean corpuscular volume ) determinationOrdered By: Ye Kim on 02-19-2025 MCV (RBC) [Entitic vol] 90.2 fL 80-94 [facility] Mean corpuscular hemoglobin (MCH) determinationOrdered By: Ye Kim on 02-19-2025 MCH (RBC) [Entitic mass] 29.5 pg 27.0-32.0 [facility] Mean corpuscular hemoglobin concentration (MCHC) determinationOrdered By: Ye Kim on 02-19-2025 MCHC (RBC) [Mass/Vol] 32.7 g/dL 32-36 [facility] Mean platelet volume determi nationOrdered By: Ye Kim on 02-19-2025 Platelet mean volume (Bld) [Entitic vol] 9.5 fL 6.2-12.0 [facility] Monocyte percentageOrdered B y: Ye Kim on 02-19-2025 Monocytes/100 WBC (Bld) 7.7 % 0-10 [facility] Neutrophil percentageOrdered By: Ye Kim on 02-19-2025 Neutrophils/100 WBC (Bld) 45.0 % Low 47-70 [facility] Nucleated red blood cell per centageOrdered By: Ye Kim on 02-19-2025 Nucleated RBC/100 WBC (Bld) [Ratio] 0 % 0-5 [facility] Platelet countOrdered By: Thiago Kim on 02-19-2025 Platelets (Bld) [#/Vol] 345 10*3/uL 150-450 [facility] Potassium measurement (mass/ volume)Ordered By: Ye Kim on 02-19-2025 Potassium (Unsp spec) [Mass/Vol] 3.9 mmol/L 3.3-5.1 [facility] RBC Auto (Bld) [#/Vol]Ordere d By: Ye Kim on 02-19-2025 RBC (Bld) [#/Vol] 4.58 10*6/uL Low 4.6-6.2 [facility] Screening total cholesterol/ high density lipoprotein (HDL) cholesterol ratioOrdered By: Ye Kim on 02-19-2025 Cholesterol.total/Chol esterol in HDL [Mass ratio] 3.49 {ratio} [facility] Serum creatinine measurement (mass/volume)Ordered By: Ye Kim on 02-19-2025 Creatinine [Mass/Vol] 1.22 mg/dL High 0.70-1.20 [facility] Serum globulin measurementOr dered By: Ye Kim on 02-19-2025 Globulin (S) [Mass/Vol] 3.8 g/dL 2.2-4.2 [facility] Serum glucose measurement (m ass/volume)Ordered By: Ye Kim on 02-19-2025 Glucose [Mass/Vol] 108 mg/dL High 70-99 [facility] Serum or plasma alanine pathak otransferase (ALT) measurementOrdered By: Thiagoganga Humphreydaliaderrick on 02-19-2025 ALT [Catalytic activity/Vol] 17 U/L <47 [facility] Serum or plasma albumin susan urement (mass/volume)Ordered By: Ye Kamdaliaderrick 02-19-2025 Albumin [Mass/Vol] 4.3 g/dL 3.5-5.0 [facility] Serum or plasma albumin/glob ulin mass ratioOrdered By: [facility] Humphreyder[facility] on 02-19-2025 Albumin/Globulin [Mass ratio] 1.1 {ratio} 0.9-2.4 [facility] Serum or plasma alkaline milagro sphatase measurementOrdered By: [facility] Humphreyderrick 02-19-2025 ALP [Catalytic activity/Vol] 61 U/L 40-129 [facility] Serum or plasma calcium susan urement (mass/volume)Ordered By: [facility] Kamderrick 02-19-2025 Calcium [Mass/Vol] 9.8 mg/dL 7.6-11.0 [facility] Serum or plasma cholesterol in HDL measurement (mass/volume)Ordered By: Marinokirtlandwisam Humphreyderrick 02-19-2025 Cholesterol in HDL [Mass/Vol] 66 mg/dL >40 [facility] Comment on above: National Cholesterol Education Program (NCEP) guidelines:<40 mg/dL: Low HDL-cholesterol (major risk factor for CHD)>= 60 mg/dL: High HDL-cholesterol (negative risk factor for CHD)HDL-cholesterol is affected by a number of factors, e.g. smoking, exercise, hormones, sex and age. Serum or plasma cholesterol measurement (mass/volume)Ordered By: Thiagoganga Kim on 02-19-2025 Cholesterol [Mass/Vol] 231 mg/dL High <201 [facility] Comment on above: Cholesterol level, D esirable <200 mg/dLBorderline high cholesterol 200-239 mg/dLHigh cholesterol >=240 mg/dLRecommendations of the NCEP Adult Treatment Panel for the following risk-cutoff thresholds for the [place] population. Serum or plasma free testost erone measurement (mass/volume)Ordered By: Ye Kim 02-19-2025 Testosterone Free [Mass/Vol] 10.56 ng/dL 5.00-21.00 [facility] Serum or plasma prolactin me asurement (mass/volume)Ordered By: Ye Kim on 02-19-2025 Prolactin [Mass/Vol] 36.5 ng/mL High 3.6-25.2 [facility] Comment on above: Performed at: - [address] [id number] Director: Stiven Chen PhD, Phone: [phone] at: - [facility] [id number] Director: Sanaz Fowler MD, Phone: [phone] Serum or plasma urea nitroge n measurement (mass/volume)Ordered By: Ye Kim on 02-19-2025 Urea nitrogen [Mass/Vol] 17 mg/dL 4-19 [facility] Sodium levelOrdered By: Marino ulloareilly Judy on 02-19-2025 Sodium [Moles/Vol] 141 mmol/L 133-145 [facility] Testosterone, totalOrdered B y: Marinodeirdre Kamanabell on 02-19-2025 Testosterone [Mass/Vol] 345 ng/dL 264-916 [facility] Comment on above: Adult male reference interval is based on a population ofhealthy nonobese males (BMI <30) between 19 and 39 yearsold. Bela, et.al. JCEM 2017,102;8586-8794. PMID:[id number]. Total proteinOrdered By: Gerardo Kim on 02-19-2025 Protein [Mass/Vol] 8.1 g/dL 5.9-8.4 [facility] Triglycerides measurementOrd ered By: Ye Kim on 02-19-2025 Triglyceride [Mass/Vol] 95 mg/dL <199 [facility] Comment on above: The drugs N-Acetylcy steine and Metamizole may falsely depress this assay. Normal range: <150 mg/dLBorderline High: 150-199 mg/dLHigh: 200-499 mg/dLVery High: >500 mg/dL White blood cell (WBC) count Ordered By: Ye Kim on 02-19-2025 WBC (Bld) [#/Vol] 4.9 10*3/uL 4.4-11.0 [facility] Internal Medicine Office Vis page 02-18-2025 Internal Medicine Office Visit [facility] [address] [place] [address] [place] [address] OFFICE VISIT Date of Service: 02/18/25 MR#: [id number] Acct: [id number] Name: TRENA CORLEY JUNIOR Rep #: [id number] : 1970 Provider: Dr. 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 Ye Kim MD) Hypogonadism in male Asthma exacerbation Bronchospasm BPH (benign prostatic hyperplasia) Blood glucose elevated Low back pain Nocturia Shortness of breath Bronchitis URI (upper respiratory infection) Chest tightness Cough Wears glasses Non-smoker History of echocardiogram Cardiology follow-up encounter History of varicocele Encounter for preventative adult health care examination Essential hypertension Hyperlipemia Surgical History History of right knee surgery Family History Father Diabetes Mother Hypertension Hyperlipemia Social History Smoking Status: Never smoker alcohol intake: never substance use type: does not use what type of physical activity do you participate in: bicycling and weight training frequency: 3-4 times per week HPI HPI Chief Complaint: yearly Details: TRENA CORLEY JUNIOR, is a 54-year-old male presenting for his yearly visit and with symptoms suggestive of hypogonadism. Follows up with urology at the [facility]. During his recent visit last week, blood tests showed low total testosterone levels. The patient did not undergo a free testosterone assay. He initially had blood work in [place] in December, which also indicated low testosterone levels. The patient forgot to bring those results to his current appointment but mentioned the low testosterone findings.. The patient reports experiencing several symptoms over the past year, notably brain fog and a perceived cognitive decline. He expressed concerns about his mental acuity and physical performance, specifically noting a lack of improvement in strength training at the gym. His mood changes were initially attributed to chemical imbalances or seasonal changes, such as winter. Kmlx-bsm-alyryct vitamin D2 and B12 supplements provided some relief. 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 His sleep quality is reported as satisfactory, and home blood pressure measurements were described as normal. Attestation: Documentation on this patient encounter was supported using ambient scribe technology/ voice AI technology. The patient consented to recording for the purpose of documenting the encounter. Provider reviewed content of the generated note prior to signature. ROS Const Constitutional: No body ache, excessive sweating, fatigue, fever(s), frequent falls, headache(s), snoring, weakness, weight change, sleep problems or change in appetite Eyes Eyes: No blurry vision, change in vision, vision loss, dry eyes, eye pain or Light sensitivity ENT ENT: No abnormal hearing, ear or mastoid pain, tinnitus, nasal congestion, headache(s), neck pain or sore throat Resp Respiratory: No cough, excessive phlegm production, hemoptysis, shortness of breath, snoring or wheezing Cardio Cardiology: No chest pain at rest, chest pain with exertion, excessive sweating, shortness of breath, dyspnea on exertion, lightheadedness, orthopnea or palpitations Gastro GI: No abdominal pain, change in bowel habits, constipation, cramping, diarrhea, nausea/dyspepsia or vomiting Genitourinary Male: No burning urination, painful urination, urinary incontinence, urinary frequency (more content not included)... Normal [facility] FSH SerPl-aCncon 02-07-2025 Follitropin Qn 15.9 m[IU]/mL High 1.5-12.4 [facility] Comment on above: Order Comment: Speci men Type: BLOOD SPECIMEN Ordering Facility: [facility] Address: [address] [place] [address] Performed By: #### 1 0501-5, 2986-8, 2842-3, 82107-6 #### [facility] CLIA [id number] [address] [place] [address] [place] Hematocrit Auto (Bld) [Volum e fraction]on 02-07-2025 Hematocrit (Bld) [Volume fraction] 42.5 % Normal 39.0-51.0 [facility] Comment on above: Order Comment: Speci men Type: BLOOD SPECIMEN Ordering Facility: [facility] Address: [address] [place] [address] Performed By: #### 4 544-3 #### [facility] CLIA [id number] [address] [place] [address] [place] LH SerPl-aCncon 02-07-2025 Lutropin Qn 5.8 m[IU]/mL Normal 1.8-10.8 [facility] Comment on above: Order Comment: Speci men Type: BLOOD SPECIMEN Ordering Facility: [facility] Address: [address] [place] [address] Performed By: #### 1 0501-5, 2986-8, 2842-3, 97928-3 #### [facility] CLIA [id number] [address] [place] [address] [place] PSA SerPl-mCncon 02-07-2025 Prostate specific Ag [Mass/Vol] 0.96 ng/mL Normal <2.60 [facility] Comment on above: Order Comment: Speci men Type: BLOOD SPECIMEN Ordering Facility: [facility] Address: [address] [place] [address] Result Comment: Tota l PSA test methodology used is the Electrochemiluminescence Immunoassay by [employer]. Total PSA values by differing methodologies cannot be interchanged. Performed By: #### 2 857-1 #### [facility] CLIA [id number] [address] [place] [address] [place] Prolactin SerPl-mCncon 02-07 Prolactin [Mass/Vol] 34.7 ng/mL High 4.1-25.1 [facility] Comment on above: Order Comment: Speci men Type: BLOOD SPECIMEN Ordering Facility: [facility] Address: [address] [place] [address] Result Comment: Prol actin test is performed using the [employer] Electrochemiluminescence Immunoassay method. Results obtained with different methods or kits cannot be used interchangeably. Performed By: #### 1 0501-5, 2986-8, 2842-3, 44070-7 #### [facility] CLIA [id number] [address] [place] [address] [place] Testost SerPl-mCncon 025 Testosterone [Mass/Vol] 390 ng/dL Normal 193-824 [facility] Comment on above: Order Comment: Speci men Type: BLOOD SPECIMEN Ordering Facility: [facility] Address: [address] [place] [address] Result Comment: A te stosterone level in the 193-320 ng/dL range with associated clinical symptoms is considered low and may indicate hypogonadism (from [facility] 2010 363:123-135). Results >320 ng/dL are considered normal. Performed By: #### 1 0501-5, 2986-8, 2842-3, 99125-4 #### [facility] CLIA [id number] [address] [place] [address] [place] CNOVon 01-14-2025 CNOV Office Visit ([facility] ) -- DO MAXINE BLACKWELLTRENA (* 1970 M Date Time Provider Department 01/14/25 3:00 PM MADINA FRANK [facility] During your visit today, we recorded the following information about you: Amarjit Dean RN 02/04/2025 5:05 PM Signed PVR - 0ML Madina Frank PA-C 02/04/2025 5:05 PM Signed [facility] PATIENT CLINIC NOTE (M) Note was generated by [employer] and edited as appropriate SERVICE DATE: February 04, 2025 NAME: Trena Mae Do Maxine GENDER: male CHIEF COMPLAINT: The patient is a 54-year-old male with a history of varicocele and spermatocele removal, presenting for evaluation of low libido and follow-up on recent lab results. HISTORY OF PRESENT ILLNESS: The patient is a 54-year-old male with a history of varicocele and spermatocele removal, presenting for evaluation of low libido and follow-up on recent lab results. Low Libido: - Noted decreased libido and difficulties with concentration and memory. - Denies erectile dysfunction, but reports erections are not the same. - Previously declined testosterone testing in 2019. Recent Lab Results: - Recent labs performed in [place] included CBC, renal function, and PSA. - PSA: 3.26 ng/mL (reference range 0-4 ng/mL). - Ferritin level noted as low. LABS: PSA (ng/mL) Date Value 05/27/2020 1.19 Testosterone (ng/dL) Date Value 05/10/2016 325 Hematocrit (%) Date Value 02/27/2016 44.2 PSA (ng/mL) Date Value 05/27/2020 1.19 Creatinine Date Value Ref Range Status 03/03/2017 1.00 0.73 - 1.22 mg/dL Final 02/27/2016 0.98 0.70 - 1.40 mg/dL Final MEDICATIONS: candesartan (ATACAND) 32 mg tablet Take 32 mg by mouth once daily. hydroCHLOROthiazide (HYDRODIURIL, ESIDRIX) 25 mg tablet Take 25 mg by mouth once daily. losartan (COZAAR) 50 mg tablet Take 1 tablet by mouth once daily. (Patient not taking: Reported on 01/14/2025) metoprolol succinate ER (TOPROL XL) 50 mg 24 hr tablet Take 1 tablet by mouth once daily. (Patient not taking: Reported on 01/14/2025) PAST MEDICAL HISTORY: No past medical history on file. PAST SURGICAL HISTORY: No past surgical history on file. FAMILY HISTORY: No family history on file. SOCIAL HISTORY: Social Connections: Not on file REVIEW OF SYSTEMS: Genitourinary: (+) decreased libido, (-) erectile dysfunction Neurological: (+) concentration difficulty, (+) memory impairment PHYSICAL EXAMINATION: There were no vitals taken for this visit. General: Alert AND oriented, no acute distress Skin: Normal HEENT: Pupils equal, round. Oral cavity, oropharynx clear Neck: Supple, no mass Breast: Deferred Respiratory: Clear to auscultation, bilaterally Cardiovascular: Regular rate and rhythm, no murmurs, rubs, or gallops Abdomen: Soft, non-tender, non-distended, no masses palpable, no hepatosplenomegaly, normal bowel sounds Genitourinary: Deferred MSK: Back is non-tender Extremities: No clubbing, cyanosis, or edema PROBLEM LIST REVIEW: Yes LABS: Results for orders placed or performed in visit on 05/27/20 PSA/PROSTSPECAG DIAG Result Value Ref Range PSA 1.19 0.00 - 2.59 ng/mL PROCEDURES: PVR: 0 ml IMAGING: ASSESSMENT/PLAN: 1. Low libido (R68.82) - Experiencing decreased libido and concerns about potential low testosterone levels. Previous testosterone testing was not performed. Ordered a comprehensive hormone panel including total testosterone, FSH, LH, and prolactin to be done before 0900 after January 25 to ensure accurate results and meet insurance requirements. Discussed that if total testosterone is less than 275 ng/dL, we will consider testosterone replacement therapy. If pituitary hormone abnormalities are detected, a referral to endocrinology will be made. Patient understands the plan and agrees to follow up based on lab results. 2. Screening for genitourinary condition (Z13.89) - Recent PSA level from [place] was 3.26 ng/mL, within their normal range of 0-4 ng/mL. Educated patient that our lab's upper limit is 2.59 ng/mL, so future tests may flag as high if above this threshold, but current level is acceptable. Advised annual PSA screening. No family history of prostate cancer. Previous urological history includes a small prostate, spermatocel, and varicocele removal. Patient understands and agrees with the plan. > Follow-up to be determined by testing ordered today > Will contact patient with the Results AND Recommendations once testing is completed Patient Instructions (AVS) - printed for patient - Schedule and complete a full hormone panel (total testosterone, FSH, LH, prolactin) at the lab before 9:00 AM any time after January 25; no fasting is needed. - Ensure you have a second set of hormone labs at least one month after the first (more content not included)... Normal [facility] Coronary Angiography CTon Coronary Angiography CT [facility] Imaging Services [address] [place] [address] 07/10/24 1615 MR#: [id number] Acct: [id number] Name: DO CASTILLOAlee BLACKWELLTRENA Rep #: [id number] : 1970 54 From: Enrique Jolley MD PCP: Dr. Ye Kim MD Status:REG CLI Y Location: CT Calcium Scoring Date of Study:: 07/10/24 Indications Indications: Family history of hyperlipidemia Coronary Calcium Scoring: High-resolution Computed Tomographic imaging of the chest was performed on [07/10/24 ], with particular attention paid to the coronary arteries. Images from the examination were analyzed for the presence and extent of coronary artery calcification , using coronary calcium quantification software. The patient tolerated the procedure well and there were no complications. The results of the coronary calcification analysis are provided below. Findings Coronary Artery Left Main (LM): 0 Left Anterior Descending (LAD): 0 Left Circumflex (LCX): 0 Right Coronary Artery (RCA): 0 Total Agatston Score: 0 Percentile Rankin% Calcium Scoring Interpretation: Different methods to categorize the overall amount of coronary plaque. Overall amount CAC SIS Visual of coronary plaque P1 Mild -100 <2 1-2 vessels with mild amount of plaque P2 Moderate 101-300 3-4 1-2 vessels with moderate amount, 3 vessels with mild amount of plaque P3 Severe 301-999 5-7 3 vessels with moderate amount, 1 vessel with severe amount of plaque P4 Extensive >1000 >8 2-3 vessels with severe amount of plaque Conclusion: No atherosclerotic plaquing noted 07/10/24 1616 Date Ernique Jolley MD Cosigner Signature (if applicable): Date CC: Dr. Enrique Jolley MD; Dr. Ye Kim MD; TIKA Mcguire Signed Normal [facility] Limited Chest CT Cardiac Onl yon 07-10-[address] Cardiac Only [facility] Imaging Services [address] [place] [id number] Cardiac Only MR#: [id number] Acct: [id number] Name: TRENA CORLEY JUNIOR Rep #: [id number] : 1970 M 54 From: Benny atkinson MD PCP: Dr. Ye Kim MD Status: REG [facility] Study: Limited Chest CT Cardiac Only Date of Exam: Exam# [id number] Ordering Dr: Jamal Centeno PA [id number] STUDY: CT CHEST WITHOUT CONTRAST REASON FOR EXAM: Male, 54 years old. HTN and hyperlipidemia RADIATION DOSAGE (If Supplied By Facility): CTDIvol = ( 12.19 ) mGy, DLP = ( 195.04 ) mGycm TECHNIQUE: Transaxial imaging was performed without the administration of intravenous contrast material. Cardiac over read examination. Individualized dose optimization techniques were used for this CT. COMPARISON: No relevant priors. FINDINGS: CHEST The lungs are normal. There is no demonstrated pleural abnormality. Normal heart and pericardium. No Normal mediastinum. Normal hilar regions. Normal unenhanced pulmonary arteries. Normal aorta arch and descending thoracic aorta. Normal osseous structures. There is no demonstrated abnormality of the visualized upper abdomen. CT/Limited Chest CT Cardiac Only IMPRESSION: Normal unenhanced CT chest T abdomen examination. Electronically Signed: Benny Mao MD at 12:53 EST , CC: Dr. Ye Kim MD; TIKA Mcguire Lump Maker: Signed Normal [facility] Internal Medicine Office Vis itoblanquita 06-08-2024 Internal Medicine Office Visit [facility] [address] [place] [address] [address] [place], [place] [id number] OFFICE VISIT Date of Service: 06/08/24 MR#: [id number] Acct: [id number] Name: TRENA CORLEY JUNIOR Rep #: [id number] : 1970 Provider: TIKA Mcguire Age/Sex: 53/M Location: [facility] Status: Signed Intake Vital Signs 10/07/23 07:55 06/08/24 08:23 Height 6 ft 6 ft Weight: 187 lb 4 oz 183 lb 8 oz BMI 25.4 24.8 BP 122/60 H 136/76 H Blood Pressure Location Lt brachial Lt brachial Position Sitting Sitting Respiration 16 16 Pulse 90 55 L Pulse Source Monitor Palpation Temp 97.6 F L 97.9 F Temp Source Temporal Temporal Oxygen Delivery Method room air Intake Visit Reasons: Shortness of breath Chief Complaint: intermitent sob 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 Accompanied by: Self Is patient in pain?: No Allergies No Known Allergies Allergy (Verified 06/08/24 08:20) Medications ???Medication ???Instructions ???Recorded ???Confirmed ???Type albuterol sulfate 90 mcg/actuation See Rx Instructions .Route 09/14/23 06/08/24 Rx aerosol inhaler .COMPLEX #8.5 grams hydrochlorothiazide 25 mg tablet 25 mg PO DAILY #90 TABLETS 02/08/24 06/08/24 Rx candesartan 32 mg tablet See Rx Instructions .Route 05/07/24 06/08/24 Rx .COMPLEX #90 tabs MDI spacer #1 ea 06/08/24 06/08/24 Rx metoprolol tartrate 50 mg tablet 50 mg PO QDAY #1 TAB 06/08/24 06/08/24 Rx mometasone 100 mcg/actuation HFA 2 puff inhalation BID #13 grams 06/08/24 06/08/24 Rx aerosol inhaler [facility] Medical History Asthma exacerbation Bronchospasm BPH (benign prostatic hyperplasia) Blood glucose elevated Low back pain Nocturia Shortness of breath Bronchitis URI (upper respiratory infection) Chest tightness Cough Wears glasses Non-smoker History of echocardiogram Cardiology follow-up encounter History of varicocele Encounter for preventative adult health care examination Essential hypertension Hyperlipemia Surgical History History of right knee surgery Family History Father Diabetes Mother Hypertension Hyperlipemia Social History Smoking Status: Never smoker alcohol intake: never substance use type: does not use what type of physical activity do you participate in: bicycling and weight training frequency: 3-4 times per week HPI HPI Chief Complaint: intermitent sob Details: TRENA CORLEY JUNIOR, is a 53 M who presents to the office today for some intermittent shortness of breath. He states that he has had some intermittent breathing issues for a long time (looking back through the chart and talking with him, this has been occurring at least since the pandemic. He noticed that when he moved to a new house in 2021 and had to start doing the mowing that it really kicked things up. He states that he notices some shortness of breath after sweeping up his cats hair. This lasts a few minutes after. He also notices that cold weather triggers. HE states that he notices wheezing when these episodes occur and then it makes him cough. He has seen cardiology in the past and did have a holter as well as an ECHO and evaluation. These were normal and he was told that he does not need to be seen regularly at the cardiology clinic. Patient states that when he was young that he had bronchitis a lot. He states that he did have allergies when he was young. He denies any major family history of cardiorespiratory disease. He states that his sister has intermittent bronchitis. PAtient does have a history of HTN requiring medications. He does check his BP and states that it varies. He notices that at lunch time it typically is a little higher than at night or in the morning. HE also has history of hyperlipidemia. He was placed on meds for a while but he prefers to do this naturally and thus has really been working on exercise and diet to correct this. He states that this does not occur everyday and sometimes he can go days to weeks without symptoms and then it sort of crops up again. Back in October he had a sickness where he felt the symptoms for several weeks. At that time his entire office was sick. He was given meds at that time and then he states for about a month he felt the best that he had felt and then slowly he noticed symptoms return. ROS Const Constitutional: No body ache, chills, excessive sweating, fatigue, fever(s), frequent falls, headache(s), snoring, weakness or change in appetite Eyes Eyes: No blurry vision, change in vision, eye pain or Light sensitivity ENT ENT: No abnormal hearing, ear or mastoid pain, tinnitus, nasal congestion, headache(s), neck pain o (more content not included)... Normal [facility] Absolute lymphocyte countOrd ered By: Ye Kim on 09-19-2023 Lymphocytes Auto (Unsp spec) [#/Vol] 1.95 10*3/uL 0.83-4.51 [facility] Automated lymphocyte count a s percentage of total leukocytesOrdered By: Ye Kim on 09-19-2023 Lymphocytes/100 WBC Auto (Unsp spec) 38.1 % 19-41 [facility] Basophil percentageOrdered B y: Ye Kim on 09-19-2023 Basophil percentage 0-5 SEEN /hpf 0-5 [facility] Basophil percentage 0.92 ng/mL 0.0-4.0 [facility] Comment on above: This test was perfor med using the TPSA assay method for FluGen chemistry system. Values obtained with differentassay methods cannot be used interchangably.When changing PSA assays in the course of monitoring apatient, additional sequential testing should be carriedout to confirm baseline values. Basophils/100 WBC (Bld) 1.8 % 0-1 [facility] Bilirubin [Mass/Vol] 0.50 mg/dL 0.20-1.00 [facility] Comment on above: For patients on eltr ombopag therapy, use of Dimension [place] TBIL is not recommended. Chloride [Moles/Vol] 104 mmol/L 98-107 [facility] Cholesterol [Mass/Vol] 224 mg/dL <200 [facility] Comment on above: <200 mg/dL Desirable 200-240 mg/dL Borderline >240 mg/dL High Risk Eosinophils/100 WBC (Bld) 7.8 % 0-5 [facility] Glucose [Mass/Vol] 118 mg/dL 74-106 [facility] Comment on above: Fasting Glucose resu lt from 100 to 125 mg/dL suggests IMPAIRED HOMEOSTASIS per A.D.A. criteria. Hemoglobin (Bld) [Mass/Vol] 13.7 g/dL 13.0-16.5 [facility] Monocytes/100 WBC (Bld) 10.2 % 0-10 [facility] Neutrophils (Bld) [#/Vol] 2.2 10*3/uL 2.0-7.7 [facility] Neutrophils/100 WBC (Bld) 41.9 % 47-70 [facility] Potassium [Moles/Vol] 3.7 mmol/L 3.5-5.1 [facility] Protein [Mass/Vol] 8.2 g/dL 6.4-8.2 [facility] Sodium [Moles/Vol] 139 mmol/L 136-145 [facility] Triglyceride [Mass/Vol] 94 mg/dL <199 [facility] Comment on above: The drugs N-Acetylcy steine and Metamizole may falsely depress this assay.Serum Triglycerides Reference Interval Normal <150 mg/dL Borderline high 150 - 199 mg/dL High 200 - 499 mg/dL Very High > or = 500 mg/dL WBC (Bld) [#/Vol] 5.1 10*3/uL 4.4-11.0 [facility] Bilirubin Test strip Ql (U)O rdered By: Ye Kim on 09-19-2023 Bilirubin Ql (U) Negative Negative [facility] Determination of erythrocyte mean corpuscular volume (MCV)Ordered By: Marinokirtlandwisam Kim on 09-19-2023 MCV (RBC) [Entitic vol] 89.7 fL 80-94 [facility] Erythrocyte distribution wid th ratioOrdered By: [facility] on 09-19-2023 Erythrocyte distribution width (RBC) [Ratio] 12.3 % 11.6-14.6 [facility] Erythrocyte distribution wid th standard deviationOrdered By: [facility]am Humphreyderrick on 09-19-2023 Erythrocyte distribution width (RBC) [Entitic vol] 40.7 fL 35.1-43.9 [facility] Hematocrit Auto (Bld) [Volum e fraction]Ordered By: Marinokirtlandwisam Kim on 09-19-2023 Hematocrit (Bld) [Volume fraction] 43.4 % 40-54 [facility] Immature granulocytes/100 WB C Auto (Bld)Ordered By: tessiekirtlandwisam Kim on 09-19-2023 Immature granulocytes/100 WBC (Bld) 0.200 % 0.0-0.9 [facility] Comment on above: IG% - Immature Granu locytes (promyelocytes, myelocytes and metamyelocytes) > 1% indicates that a LEFT SHIFT is Present. Ketones Test strip Ql (U)Ord ered By: Ye Kim on 09-19-2023 Ketones Ql (U) 5 mg/dl Negative [facility] Laboratory - Chemistry and C hemistry - challengeOrdered By: Ye Kim on 09-19-2023 Albumin/Globulin [Mass ratio] 0.9 {ratio} 0.9-2.4 [facility] ALP [Catalytic activity/Vol] 61 U/L 45-117 [facility] ALT [Catalytic activity/Vol] 31 U/L 16-61 [facility] Cholesterol in HDL [Mass/Vol] 55 mg/dL >40 [facility] Comment on above: The drugs N-Acetylcy steine and Metamizole may falsely depress this assay. Reference Range HDL <40 mg/dL Low HDL Cholesterol HDL >or= 60 mg/dL High HDL Cholesterol Cholesterol in LDL [Mass/Vol] 150 mg/dL 0-130 [facility] CO2 [Moles/Vol] 29.0 mmol/L 21.0-32.0 [facility] Globulin (S) [Mass/Vol] 4.3 g/dL 2.2-4.2 [facility] Urea nitrogen/Creatinine [Mass ratio] 17.9 mg/mg 10-20 [facility] Laboratory - Hematology and Cell countsOrdered By: Ye Kim on 09-19-2023 MCH (RBC) [Entitic mass] 28.3 pg 27.0-32.0 [facility] MCHC (RBC) [Mass/Vol] 31.6 g/dL 32-36 [facility] Nucleated RBC/100 WBC (Bld) [Ratio] 0 % 0-5 [facility] Platelet mean volume (Bld) [Entitic vol] 9.5 fL 6.2-12.0 [facility] Platelets (Bld) [#/Vol] 365 10*3/uL 150-450 [facility] Mucus LM Ql (Urine sed)Order ed By: Ye Kim on 09-19-2023 Mucus Ql (Urine sed) 0 SEEN /hpf [facility] Nitrite Test strip Ql (U)Ord ered By: Ye Kim on 09-19-2023 Nitrite Ql (U) Negative Negative [facility] No Panel InformationOrdered By: Ye Kim on 09-19-2023 Estimated GFR (MDRD) Amer 89 mL/min >60 [facility] Comment on above: GFR Calc Estimated GFR (MDRD) Non-Af Amer 73 mL/min >60 [facility] Comment on above: Non- GFR Calc Urine RBC 0 SEEN /hpf 0-5 [facility] VLDL Cholesterol 19 mg/dL 5-40 [facility] Protein Test strip Ql (U)Ord ered By: Ye Kim on 09-19-2023 Protein Ql (U) 15 mg/dl Negative [facility] RBC Auto (Bld) [#/Vol]Ordere d By: Ye Kim on 09-19-2023 RBC (Bld) [#/Vol] 4.84 10*6/uL 4.6-6.2 [facility] Serum or plasma calcium susan urement (mass/volume)Ordered By: Ye Kim on 09-19-2023 Calcium [Mass/Vol] 9.6 mg/dL 8.5-10.1 [facility] Serum or plasma creatinine m easurement (mass/volume)Ordered By: Ye Kim on 09-19-2023 Creatinine [Mass/Vol] 1.12 mg/dL 0.70-1.30 [facility] Comment on above: The validity of the calculated GFR & GFRAA in patients over 70 years has not been determined. Clinical correlation is essential. Serum or plasma urea nitroge n measurement (mass/volume)Ordered By: Ye Kim on 09-19-2023 Urea nitrogen [Mass/Vol] 20 mg/dL 7-18 [facility] Squamous epithelial cells de tection in urine sediment by light microscopyOrdered By: Ye Kim on 09-19-2023 Epithelial cells.squamous LM Ql (Urine sed) 0-5 SEEN /hpf 0-5 [facility] Thin prep Papanicolaou smear with manual screeningOrdered By: Ye Kim on 09-19-2023 Thin prep Papanicolaou smear with manual screening 3.9 g/dL 3.2-5.0 [facility] Thin prep Papanicolaou smear with manual screening 21 U/L 15-37 [facility] Thin prep Papanicolaou smear with manual screening 6 5-15 [facility] Urine blood detectionOrdered By: Ye Kim on 09-19-2023 RBC Ql (U) Negative Negative [facility] Urine clarityOrdered By: Gerardo Kim on 09-19-2023 Clarity (U) Clear Clear [facility] Urine color determinationOrd ered By: Ye Kim on 09-19-2023 Color (U) Yellow Yellow [facility] Urine glucose detectionOrder ed By: Ye Kim on 09-19-2023 Glucose Ql (U) Normal mg/dl Normal [facility] Urine leukocyte esterase det ection by dipstickOrdered By: Ye Kim on 09-19-2023 Leukocyte esterase Test strip Ql (U) 25 /ul Negative [facility] Urine pHOrdered By: Adan Kim on 09-19-2023 pH (U) 5.0 [pH] 5.0 - 8.0 [facility] Urine sediment bacteria coun t by microscopy (number/high power field)Ordered By: Ye Kim on 09-19-2023 Bacteria LM.HPF (Urine sed) [#/Area] 0 /[HPF] None Seen [facility] Urine specific gravity measu rementOrdered By: Ye Kim on 09-19-2023 Specific gravity (U) [Rel density] 1.020 1.002-1.030 [facility] Urine urobilinogen measureme ntOrdered By: Ye Kim on 09-19-2023 Urobilinogen Ql (U) Normal mg/dl Normal [facility] OBSOLETEon 05-18-2017 OBSOLETE Refill (AGCARDWST) TRENA CORLEY JR. (000* 1970 MDate Time Provider [id number]/15/17 YORDAN DICKEY During your visit today, we recorded the following information about you:Mallory Cormier MA 05/18/2017 2:50 PM SignedPatient phones requesting refills as follows:Patient is scheduled to see you in July when he gets back from [place].Pending Prescriptions Disp Refills LOSARTAN 50 MG TABLET 90 tablet 3 Sig: Take 1 tablet by mouth once daily. TRISH: No METOPROLOL SUCCINATE ER 50 MG TABLET,EXTENDED RELEASE 24 HR 90 tablet 3 Sig: Take 1 tablet by mouth once daily. TRISH: No Please review and advise.Harmeet Seals MD 05/18/2017 3:20 PM SignedThe following approved medication requests have been transmitted electronically.Signed Prescriptions Disp Refills losartan (COZAAR) 50 mg tablet 90 tablet 3 Sig: Take 1 tablet by mouth once daily. TRISH: No Authorizing Provider: YORDAN DICKEY metoprolol succinate ER (TOPROL XL) 50 mg 24 hr tablet 90 tablet 3 Sig: Take 1 tablet by mouth once daily. TRISH: No Authorizing Provider: YORDAN DICKEY MDAllergies As of Date: 05/18/2017(No Known Allergies)Date Reviewed: 02/09/2017Reviewed by: Mallory Cormier - Fully AssessedReason for Visit: Refill Request [94]Order(s):losartan (COZAAR) 50 mg tabletTake 1 tablet by mouth once daily.Disp: 90 tabletRfl: 3 metoprolol succinate ER (TOPROL XL) 50 mg 24 hr tabletTake 1 tablet by mouth once daily.Disp: 90 tabletRfl: 3Prescriptions as of 05/18/2017 Sig: LOSARTAN 50 MG TABLET Take 1 tablet by mouth once d* METOPROLOL SUCCINATE ER 50 MG* Take 1 tablet by mouth once d*Problem List As Of Date 05/18/2017 Noted Resolved Essential hypertension [I10] INVALID FOR* 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 METOPROLOL SUCCINATE ER 50 MG TABLET* 90 t* 3 05/18/2017 Route: ORAL Sig: Take 1 tablet by mouth once daily.Medications Discontinued During This Encounter losartan (COZAAR) 50 mg tablet 90 t* 3 02/09/2016 05/18/2017 Route: ORAL Sig: Take 1 tablet by mouth once daily. Disc: Reason for discontinue is not on file. metoprolol succinate ER (TOPROL XL) * 90 t* 3 02/09/2016 05/18/2017 Route: ORAL Sig: Take 1 tablet by mouth once daily. Disc: Reason for discontinue is not on file. Status:Closed by MALLORY CORMIER MA on 05/18/17 Normal [facility] Vital Signs Date Time Vital Sign Value Performing Clinician Faci lity 02-18-2025 07:27-0400 Body height 182.[address] Ye Kim MD Work Phone: [facility] 02-18-2025 07:27-0400 Body mass index (BMI) [Ratio] 24.5 kg/m2 Dr. Ye Kim MD Work Phone: [facility] 02-18-2025 07:27-0400 Body temperature 97.8 [degF] Dr. Ye Kim MD Work Phone: [facility] 02-18-2025 07:27-0400 Body weight 82.[address] Ye Kim MD Work Phone: [facility] 02-18-2025 07:27-0400 Diastolic blood pressure 80 mm[Hg] Dr. Ye Kim MD Work Phone: [facility] 02-18-2025 07:27-0400 Heart rate 80 /min Dr. Ye Kim MD Work Phone: [facility] 02-18-2025 07:27-0400 Respiratory rate 16 /min Dr. Ye Kim MD Work Phone: [facility] 02-18-2025 07:27-0400 SaO2% (BldA) [Mass fraction] 98 % Dr. Ye Kim MD Work Phone: [facility] 02-18-2025 07:27-0400 Systolic blood pressure 140 mm[Hg] Dr. Ye Kim MD Work Phone: [facility] 09-14-2023 16:19-0400 Body height 187.[address] Ye Kim Work Phone: [facility] 09-14-2023 16:19-0400 Body mass index (BMI) [Ratio] 24.6 kg/m2 Dr. Ye Kim Work Phone: [facility] 09-14-2023 16:19-0400 Body temperature 97.7 [degF] Dr. Ye Kim Work Phone: [facility] 09-14-2023 16:19-0400 Body weight 87.[address] Ye Kim Work Phone: [facility] 09-14-2023 16:19-0400 Diastolic blood pressure 72 mm[Hg] Dr. Ye Kim Work Phone: [facility] 09-14-2023 16:19-0400 Heart rate 87 /min Dr. Ye Kim Work Phone: [facility] 09-14-2023 16:19-0400 Respiratory rate 16 /min Dr. Ye Kim Work Phone: [facility] 09-14-2023 16:19-0400 SaO2% (BldA) [Mass fraction] 97 % Dr. Ye Kim Work Phone: [facility] 09-14-2023 16:19-0400 Systolic blood pressure 112 mm[Hg] Dr. Ye Kim Work Phone: [facility] Encounters Encounter Date Encounter Type Care Provider Facility Start: 02-19-2025 End: 02-19-[address] Ye Kim MD Work Phone: -Laboratory Start: 02-19-2025 End: 02-19-[address] Ye Kim MD -Laboratory Work Phone: Start: 02-18-2025 End: 02-19-[address] Ye Kim MD Work Phone: -[facility] Start: 02-18-2025 End: 02-18-[address] Ye Kim MD -[facility] Work Phone: Start: 02-13-2025 End: 02-13-2025 ambulatory Madina Frank PA-C Work Phone: Urology Comment on above: Results from the lab test Start: 02-07-2025 End: 02-07-2025 ambulatory MADINA FRANK Facility:[facility] Start: 01-14-2025 End: 01-14-2025 Patient encounter procedure Madina VILLELA-C Work Phone: Urology Comment on above: Low libido (Primary Dx); Screening for genitourinary condition Start: 01-14-2025 End: 01-14-2025 ambulatory MADINA FRANK Facility:[facility] Start: 07-10-2024 ambulatory Ye Jeong ty:[facility] Start: 07-10-2024 End: 07-10-2024 ambulatory Jamal VILLELA Facility:[facility] Start: 06-08-2024 End: 06-08-2024 ambulatory Jamal VILLELA Facility:[facility] Start: 09-19-2023 End: 09-19-[address] Ye Kim Work Phone: [facility] Work Phone: Start: 09-19-2023 End: 09-19-2023 Patient encounter procedure Dr. Ye Kim Work Phone: [facility], [facility] Start: 09-14-2023 End: 09-14-[address] Ye Kim Work Phone: [facility] Work Phone: Start: 06-02-[address] Derrick Kim Work Phone: [facility] Procedures Date Procedure Procedure Detail Performing Clinician Start: 02-19-[address] hormone measurement Dr. Ye Kim MD Work Phone: Comment on above: FEMALE:Follicular: 1 .4 - 18.1 mIU/mLMidcycle: 3.4 - 33.4 mIU/mLLuteal: 1.5 - 9.1 mIU/mLPost Menopause: 23.0 - 116.3 mIU/mLMALE: 1.4 - 18.1 mIU/mL Start: 03-03-2017 Lipid 1996 panel - S adriana or Plasma Madina Frank PA-C Work Phone: Plan of Treatment Date Care Activity Detail Author Start: 03-02-2034 Urine microalbumin profile DTaP,Tdap,Td Vaccine (2 - Td or Tdap) [facility] Start: 02-07-2030 Prostate specific antigen measurement Prostate Cancer Screening Discussion [facility] Start: 05-27-2025 Prostate specific antigen measurement Prostate Cancer Screening Discussion [facility] Start: 03-04-2025 Influenza vaccination Influenza Vacc ine (#1) [facility] Start: 01-14-2025 End: 04-15-2025 Follitropin [Units/volume] in Serum or Plasma FOLLICLE STIMULATING HORMONE Lab Routine Low libido Expected: 01/14/2025, Expires: 04/15/2025 [facility] Comment on above: Expected: 01/14/2025 , Expires: 04/15/2025 Start: 01-14-2025 End: 04-15-2025 Hematocrit [Volume Fraction] of Blood HEMATOCRIT Lab Routine Low libido Expected: 01/14/2025, Expires: 04/15/2025 [facility] Comment on above: Expected: 01/14/2025 , Expires: 04/15/2025 Start: 01-14-2025 End: 04-15-2025 Lutropin [Units/volume] in Serum or Plasma LUTEINIZING HORMONE Lab Routine Low libido Expected: 01/14/2025, Expires: 04/15/2025 [facility] Comment on above: Expected: 01/14/2025 , Expires: 04/15/2025 Start: 01-14-2025 End: 04-15-2025 Prolactin [Mass/volume] in Serum or Plasma PROLACTIN Lab Routine Low libido Expected: 01/14/2025, Expires: 04/15/2025 [facility] Comment on above: Expected: 01/14/2025 , Expires: 04/15/2025 Start: 01-14-2025 End: 04-15-2025 Prostate specific Ag [Mass/volume] in Serum or Plasma PROSTATE-SPECIFIC ANTIGEN DIAGNOSTIC Lab Routine Low libido Expected: 01/14/2025, Expires: 04/15/2025 [facility] Comment on above: Expected: 01/14/2025 , Expires: 04/15/2025 Start: 01-14-2025 End: 04-15-2025 Testosterone [Mass/volume] in Serum or Plasma TESTOSTERONE, TOTAL BY IMMUNOASSAY (ADULT MALES, OR INDIVIDUALS ON TESTOSTERONE THERAPY) Lab Routine Low libido Expected: 01/14/2025, Expires: 04/15/2025 [facility] Comment on above: Expected: 01/14/2025 , Expires: 04/15/2025 Start: 05-25-2024 Shingrix Vaccine (2 of 2) Shingrix Vaccine (2 of 2) [facility] Start: 2022 Pneumococcal Vaccine : 50+ (1 of 1 - PCV) Pneumococcal Vaccine: 50+ (1 of 1 - PCV) [facility] Start: 03-03-2022 Lipid panel Lipid Screening [facility] Start: 03-03-2020 Diabetes Screening Diabetes Screenin g [facility] Start: 2017 Screening for malign ant neoplasm of colon [facility] Start: 1991 Hepatitis B Vaccine (1 of 3 - 19+ 3-dose series) Hepatitis B Vaccine (1 of 3 - 19+ 3-dose series) [facility] Start: 1990 Annual PCP Team Financial Services Professional deepti Disease Visit Annual PCP Team Chronic Disease Visit [facility] Start: 1990 Anxiety Screening Anxiety Screening [facility] Start: 1990 Depression Screening Depression Scre ening [facility] Start: 1990 Hepatitis C screening Hepatitis C [facility] Start: 1990 HIV screening HIV Screening [facility] CBC W Auto Different ial panel - Blood [facility] Comprehensive metabo lic 1999 panel - Serum or Plasma [facility] Follitropin and Lutr opin panel [Units/volume] - Serum or Plasma [facility] Lipid 1996 panel - S adriana or Plasma [facility] Prolactin measurement [facility] Testosterone measurement [facility] UA DIP, URINE (POC) UA DIP, URIN E (POC) Lab Routine Screening for genitourinary condition Ordered: 01/14/2025 [facility] Work Phone: Comment on above: Ordered: 01/14/2025 Immunizations Immunization Date Immunization Notes Care Provider Fa richelle 04-30-2023 influenza virus vaccine, unspecified formulation Madina Frank PA-C Work Phone: [facility] 05-02-2021 influenza, injectabl e, quadrivalent, preservative free Dr. Ye Kim Work Phone: [facility] 05-03-[address] Ye Kim Work Phone: [facility] Payers Date Payer Category Payer Self-pay [id number] 2024 Self-pay [id number] 2019 [employer] [facility] BLUE CARD PPO OOS [id number] 2019 Unknown [id number] 2015 Private Health Insurance MULTIPL AN [id number] 2015 Unknown [id number] Unknown [id number] Unknown [id number] Unknown [id number] Unknown [id number] Unknown [id number] Social History Date Type Detail Facility Start: [facility]14-[facility]23 [facility] Start: 1970 Sex Assigned At Male [facility] Start: 02-11-2016 End: 10-07-2023 Tobacco smoking status HIIS Never smoked tobacco [facility] Start: 02-11-2016 Tobacco use and exposure Smokeless tobacco non-user [facility] Start: 05-27-2020 Alcoholic beverage intake Not Asked [facility] Start: 05-27-2020 End: 01-14-2025 History of Social function [facility] Start: 05-27-2020 End: 01-14-2025 Tobacco use panel [facility] Start: 08-19-2015 National Score (1-10 0), lower number is lower risk 99 [facility] Start: 1970 Sex assigned at Not on file [facility] Start: 02-05-2025 Gender identity Identifies as male gender (finding) [facility] Start: 02-05-2025 Sexual orientation Heterosexual (rosaura taylor) [facility] Evaluation note 02-18-2025 Note Date & Type Note Facility 02-18-2025 Evaluation note Diagnosis Onset Date Resolution Hypogonadism in male acute Augu [facility] 2024 7:24am Essential hypertension chronic Au keysha 2024 7:24am Hyperlipemia chronic February 18, 2025 7:24am Shortness of breath chronic Augus t 2024 7:24am [facility] Work Phone: Progress note 01-14-2025 Note Date & Type Note Facility 01-14-2025 Note HNO ID: [id number] Author: MADINA FRANK PA-C Service: ? Author Type: Physician Fluid Pump Operator Type: Progress Notes Filed: 02/04/2025 17:05 Note Text: [facility] NEW PATIENT CLINIC NOTE (M) Note was generated by [employer] and edited as appropriate SERVICE DATE: February 04, 2025 NAME: Trena Corley Junior GENDER: male CHIEF COMPLAINT: The patient is a 54-year-old male with a history of varicocele and spermatocele removal, presenting for evaluation of low libido and follow-up on recent lab results. HISTORY OF PRESENT ILLNESS: The patient is a 54-year-old male with a history of varicocele and spermatocele removal, presenting for evaluation of low libido and follow-up on recent lab results. Low Libido: - Noted decreased libido and difficulties with concentration and memory. - Denies erectile dysfunction, but reports erections are not the same. - Previously declined testosterone testing in 2019. Recent Lab Results: - Recent labs performed in [place] included CBC, renal function, and PSA. - PSA: 3.26 ng/mL (reference range 0-4 ng/mL). - Ferritin level noted as low. LABS: PSA (ng/mL) Date Value 05/27/2020 1.19 Testosterone (ng/dL) Date Value 05/10/2016 325 Hematocrit (%) Date Value 02/27/2016 44.2 PSA (ng/mL) Date Value 05/27/2020 1.19 Creatinine Date Value Ref Range Status 03/03/2017 1.00 0.73 - 1.22 mg/dL Final 02/27/2016 0.98 0.70 - 1.40 mg/dL Final MEDICATIONS: candesartan (ATACAND) 32 mg tablet Take 32 mg by mouth once daily. hydroCHLOROthiazide (HYDRODIURIL, ESIDRIX) 25 mg tablet Take 25 mg by mouth once daily. losartan (COZAAR) 50 mg tablet Take 1 tablet by mouth once daily. (Patient not taking: Reported on 01/14/2025) metoprolol succinate ER (TOPROL XL) 50 mg 24 hr tablet Take 1 tablet by mouth once daily. (Patient not taking: Reported on 01/14/2025) PAST MEDICAL HISTORY: No past medical history on file. PAST SURGICAL HISTORY: No past surgical history on file. FAMILY HISTORY: No family history on file. SOCIAL HISTORY: Social Connections: Not on file REVIEW OF SYSTEMS: Genitourinary: (+) decreased libido, (-) erectile dysfunction Neurological: (+) concentration difficulty, (+) memory impairment PHYSICAL EXAMINATION: There were no vitals taken for this visit. General: Alert AND oriented, no acute distress Skin: Normal HEENT: Pupils equal, round. Oral cavity, oropharynx clear Neck: Supple, no mass Breast: Deferred Respiratory: Clear to auscultation, bilaterally Cardiovascular: Regular rate and rhythm, no murmurs, rubs, or gallops Abdomen: Soft, non-tender, non-distended, no masses palpable, no hepatosplenomegaly, normal bowel sounds Genitourinary: Deferred MSK: Back is non-tender Extremities: No clubbing, cyanosis, or edema PROBLEM LIST REVIEW: Yes LABS: Results for orders placed or performed in visit on 05/27/20 PSA/PROSTSPECAG DIAG Result Value Ref Range PSA 1.19 0.00 - 2.59 ng/mL PROCEDURES: PVR: 0 ml IMAGING: ASSESSMENT/PLAN: 1. Low libido (R68.82) - Experiencing decreased libido and concerns about potential low testosterone levels. Previous testosterone testing was not performed. Ordered a comprehensive hormone panel including total testosterone, FSH, LH, and prolactin to be done before 0900 after January 25 to ensure accurate results and meet insurance requirements. Discussed that if total testosterone is less than 275 ng/dL, we will consider testosterone replacement therapy. If pituitary hormone abnormalities are detected, a referral to endocrinology will be made. Patient understands the plan and agrees to follow up based on lab results. 2. Screening for genitourinary condition (Z13.89) - Recent PSA level from [place] was 3.26 ng/mL, within their normal range of 0-4 ng/mL. Educated patient that our lab's upper limit is 2.59 ng/mL, so future tests may flag as high if above this threshold, but current level is acceptable. Advised annual PSA screening. No family history of prostate cancer. Previous urological history includes a small prostate, spermatocel, and varicocele removal. Patient understands and agrees with the plan. > Follow-up to be determined by testing ordered today > Will contact patient with the Results AND Recommendations once testing is completed Patient Instructions (AVS) - printed for patient - Schedule and complete a full hormone panel (total testosterone, FSH, LH, prolactin) at the lab before 9:00 AM any time after January 25; no fasting is needed. - Ensure you have a second set of hormone labs at least one month after the first to meet insurance requirements (orders valid for six months). - If your total testosterone is below 275 ng/dL, we will discuss testosterone replacement therapy when we review your results. - If pituitary hormones (FSH, LH, prolactin) are abnorm (more content not included)... [facility] History of Present illness Narrative 01-14-2025 Madina Frank PA-C - 01/14/2025 4:05 PM EDTGAmarjit sadler RN - 01/14/2025 2:56 PM EDT Note Date & Type Note Facility 01-14-2025 History of Presen t illness Narrative Images from the original note were not included. [facility] PATIENT CLINIC NOTE (M) Note was generated by [employer] and edited as appropriate SERVICE DATE: February 04, 2025 NAME: Trena Corley Junior GENDER: male CHIEF COMPLAINT: The patient is a 54-year-old male with a history of varicocele and spermatocele removal, presenting for evaluation of low libido and follow-up on recent lab results. HISTORY OF PRESENT ILLNESS: The patient is a 54-year-old male with a history of varicocele and spermatocele removal, presenting for evaluation of low libido and follow-up on recent lab results. Low Libido: - Noted decreased libido and difficulties with concentration and memory. - Denies erectile dysfunction, but reports erections are not the same. - Previously declined testosterone testing in 2019. Recent Lab Results: - Recent labs performed in [place] included CBC, renal function, and PSA. - PSA: 3.26 ng/mL (reference range 0-4 ng/mL). - Ferritin level noted as low. LABS: PSA (ng/mL) Date Value 05/27/2020 1.19 Testosterone (ng/dL) Date Value 05/10/2016 325 Hematocrit (%) Date Value 02/27/2016 44.2 PSA (ng/mL) Date Value 05/27/2020 1.19 Creatinine Date Value Ref Range Status 03/03/2017 1.00 0.73 - 1.22 mg/dL Final 02/27/2016 0.98 0.70 - 1.40 mg/dL Final MEDICATIONS: candesartan (ATACAND) 32 mg tablet Take 32 mg by mouth once daily. hydroCHLOROthiazide (HYDRODIURIL, ESIDRIX) 25 mg tablet Take 25 mg by mouth once daily. losartan (COZAAR) 50 mg tablet Take 1 tablet by mouth once daily. (Patient not taking: Reported on 01/14/2025) metoprolol succinate ER (TOPROL XL) 50 mg 24 hr tablet Take 1 tablet by mouth once daily. (Patient not taking: Reported on 01/14/2025) PAST MEDICAL HISTORY: No past medical history on file. PAST SURGICAL HISTORY: No past surgical history on file. FAMILY HISTORY: No family history on file. SOCIAL HISTORY: Social Connections: Not on file REVIEW OF SYSTEMS: Genitourinary: (+) decreased libido, (-) erectile dysfunction Neurological: (+) concentration difficulty, (+) memory impairment PHYSICAL EXAMINATION: There were no vitals taken for this visit. General: Alert & oriented, no acute distress Skin: Normal HEENT: Pupils equal, round. Oral cavity, oropharynx clear Neck: Supple, no mass Breast: Deferred Respiratory: Clear to auscultation, bilaterally Cardiovascular: Regular rate and rhythm, no murmurs, rubs, or gallops Abdomen: Soft, non-tender, non-distended, no masses palpable, no hepatosplenomegaly, normal bowel sounds Genitourinary: Deferred MSK: Back is non-tender Extremities: No clubbing, cyanosis, or edema PROBLEM LIST REVIEW: Yes LABS: Results for orders placed or performed in visit on 05/27/20 PSA/PROSTSPECAG DIAG Result Value Ref Range PSA 1.19 0.00 - 2.59 ng/mL PROCEDURES: PVR: 0 ml IMAGING: ASSESSMENT/PLAN: 1. Low libido (R68.82) - Experiencing decreased libido and concerns about potential low testosterone levels. Previous testosterone testing was not performed. Ordered a comprehensive hormone panel including total testosterone, FSH, LH, and prolactin to be done before 0900 after January 25 to ensure accurate results and meet insurance requirements. Discussed that if total testosterone is less than 275 ng/dL, we will consider testosterone replacement therapy. If pituitary hormone abnormalities are detected, a referral to endocrinology will be made. Patient understands the plan and agrees to follow up based on lab results. 2. Screening for genitourinary condition (Z13.89) - Recent PSA level from [place] was 3.26 ng/mL, within their normal range of 0-4 ng/mL. Educated patient that our lab's upper limit is 2.59 ng/mL, so future tests may flag as high if above this threshold, but current level is acceptable. Advised annual PSA screening. No family history of prostate cancer. Previous urological history includes a small prostate, spermatocel, and varicocele removal. Patient understands and agrees with the plan. > Follow-up to be determined by testing ordered today > Will contact patient with the Results & Recommendations once testing is completed Patient Instructions (AVS) - printed for patient - Schedule and complete a full hormone panel (total testosterone, FSH, LH, prolactin) at the lab before 9:00 AM any time after January 25; no fasting is needed. - Ensure you have a second set of hormone labs at least one month after the first to meet insurance requirements (orders valid for six months). - If your total testosterone is below 275 ng/dL, we will discuss testosterone replacement therapy when we review your results. - If pituitary hormones (FSH, LH, prolactin) are abnormal, you will be referred to endocrinology rather than urology. - Continue annual PSA screening; your most recent PSA was 3.26 ng/mL (normal range 0-4 ng/mL). - You may have these labs drawn at your [facility] (call [facility] or [place] location to confirm hours). - Discuss your low ferritin level (iron stores) with your primary care physician, Dr. Noriega, since iron management falls outside urology. - Once your hormone panel results are available, schedule a follow-up appointment (Tuesdays in [place]) to review and plan next steps. HAO Carlson, NADINE, VALENCIA PVR - 0ML documented in this encounter [facility] Progress note 01-14-2025 Note Date & Type Note Facility 01-14-2025 Note HNO ID: [id number] Author: AMARJIT DEAN RN Service: ? Author Type: Registered Nurse Type: Progress Notes Filed: 02/04/2025 17:05 Note Text: PVR - 0ML [facility] Evaluation note Note Date & Type Note Facility Evaluation note Diagnosis Onset Date BPH (benign prostatic hyperplasia) chronic Bronchospasm chronic Essential hypertension chron ic Hyperlipemia [facility] Work Phone: Evaluation note Note Date & Type Note Facility Evaluation note Diagnosis Low libido- Primary Decreased libido Screening for genitourinary condition Screening for other and unspecified genitourinary condition documented in this encounter [facility] Evaluation note Note Date & Type Note Facility Evaluation note No assessment information availa lina [facility] Work Phone: Reason for referral (narrative) Note Date & Type Note Facility Reason for referral (narrative) No reason for referral information available [facility] Work Phone: Summary Purpose Family History No Family History Records Found Relationship Condition Age at Onset Recorded Date/T dee father Diabetes mellitus Unknown mother Hypertension Unknown Hyperlipidemia Unknown Advance Directives No Advanced Directives Records Found Advance Directive Response Recorded Date/ Time Living Will No February 23rd, 2 022 11:24am Power of B2B Outside Sales Representative No August 26, 2021 11:24am Chief Complaint and Reason for Visit Chief Complaint FOLLOW UP Reason for Visit BPH (benign prostati c hyperplasia) Bronchospasm Essential hypertension Hyperlipemia Chief Complaint Admit Date yearly February 18, 2025 7: 24am Chief Complaint Admit Date yearly February 18, 2025 7: 24am E ORDERS February 19, 2025 7: 37am Reason for Visit Admit Date Hypogonadism in male February 18, 2025 7 :24am Essential hypertension February 18, 2025 7:24am Hyperlipemia February 18, 2025 7: 24am Shortness of breath February 18, 2025 7: 24am Additional Source Comments (unrecognized sect ion and content) No Status Records FoundNo Status Records FoundNo Status Records Found INFORMATION SOURCE (unrecogn ized section and content) DATE CREATED AUTHOR 12/27/2017 [facility] DATE CREATED AUTHOR AUTHOR'S ORGANIZ ATION 02/09/2025 [facility] DATE CREATED AUTHOR AUTHOR'S ORGANIZ ATION 02/26/2025 [facility] Care Teams (unrecognized sec tion and content) Team Status: Active Member Role Status Dates Dr. Ye Kim MD Family Provider Active Dr. Ye Kim MD Primary Care Provider Active Team Status: Inactive Member Role Status Dates Dr. Ye Kim MD Primary Care Bandar reyes, Attending Provider, Referring Provider Active Team Status: Inactive Member Role Status Dates Dr. Ye Kim MD Primary Care Provider, Atten ding Provider Active Team Status: Active Member Role/Relationship Status Dates Dr. Ye Kim MD Family Provider Active Dr. Ye Kim MD Primary Care Provider Active Team Status: Inactive Member Role/Relationship Status Dates Dr. Ye Kim MD Primary Care Provider Active Start: February 18, 2025 End: February 18, 2025 Dr. Ye Kim MD Attending Provider Active Start: February 18, 2025 End: February 18, 2025 Dr. Ye Kim MD Referring Provider Active Start: February 18, 2025 End: February 18, 2025 Team Status: Inactive Member Role/Relationship Status Dates Dr. Ye Kmi MD Primary Care Provider Active Start: February 19, 2025 End: February 19, 2025 Dr. Ye Kim MD Attending Provider Active Start: February 19, 2025 End: February 19, 2025 Dr. Ye Kim MD Referring Provider Active Start: February 19, 2025 End: February 19, 2025 Goals (unrecognized section and content) Goals may be documented in a n alternate sectionGoals may be documented in an alternate sectionGoals may be documented in an alternate section Source Comments (unrecognize d section and content) In the event this informatio n is protected by the Federal Confidentiality of Alcohol and Drug Abuse Patient Records regulations: The Federal rules restrict any use of the information to criminally investigate or prosecute any alcohol or drug abuse patient.[facility] the event this information is protected by the Federal Confidentiality of Alcohol and Drug Abuse Patient Records regulations: The Federal rules restrict any use of the information to criminally investigate or prosecute any alcohol or drug abuse patient.[facility] Reason for Visit (unrecogniz ed section and content) Reason Comments New Patient FOR RECORDS PERTAINING TO PATIENTS WHO ARE OR HAVE BEEN ENROLLED IN A CHEMICAL DEPENDENCY/SUBSTANCEABUSE PROGRAM, SOME INFORMATION MAY BE OMITTED. This clinical summary was aggregated from multiple sources. Caution should be exercised in using it in the provision of clinical care. This summary normalizes information from multiple sources, and as a consequence, information in this document may materially change the coding, format and clinical context of patient data. In addition, data may be omitted in some cases. CLINICAL DECISIONS SHOULD BE BASED ON THE PRIMARY CLINICAL RECORDS. [facility]. provides no warranty or guarantee of the accuracy or completeness of information in this document.
[2025-06-20 09:41] LABS: CORTISOL AM 13.60 ug/dL (6.02-18.40); Free T3 3.0 pg/mL (2.18-3.98)
== END | disposition home or self-care (01) ==
LOC: LAB 07:55
PROVIDERS: PCP Internal Medicine; Referring Provider Internal Medicine Endocrinology, Diabetes & Metabolism; Visit Provider Internal Medicine Endocrinology, Diabetes & Metabolism
DX: R73.9 Hyperglycemia, unspecified (principal)
CPT/HCPCS: 36415; 82024; 82533; 82670; 84305; 84439; 84481